=== PATIENT | female | born 1955 | race Caucasian/White ===

== ENCOUNTER 2017-07-01 12:09 | Inpatient (IN) | payer OTHER, SELFPAY ==
[2017-07-01] VITALS (15 sets, daily range): BP systolic 135–168; BP diastolic 69–92; PULSE 61–86; RESP 14–18; TEMP 36.2–37.4; O2SAT 95–100; BMI 32.5; BMI 32.6; BMI 32.7
--- NOTE | 2017-07-01 12:50 | ED.DCSUM_ITS ---
- ER Visit Summary Date of Service: 07/01/17 Chief Complaint: [] Sided nosebleed history of anemia thrombocytopenia and possibly cancer History of Present Illness: The patient is a 61 F [] ports she began having nasal congestion primary involving the right nostril, she indicates she has some type of cancer she describes as myelodysplastic syndrome she was seen by her oncologist yesterday put on Levaquin and amoxicillin and addition to nasal saline spray and she noticed she began having left-sided nosebleed today and she presents for evaluation. She is not prone to nosebleeds. She has no bleeding elsewhere she has no bruisability she has no vomiting of blood or blood per rectum Physical Examination: [] On exam she has a bleeding from the left side of the nostril the right nostril is clear the oral cavity is unremarkable the neck is supple lungs are clear heart tones unremarkable the abdomen soft nontender his skin is unremarkable the bruisability or bleeding the did show me her recent labs which include yesterday that showed hemoglobin about 8.5 and platelet count 57,000 at this time we did clear her nose there is no obvious signs of the bleeding site there is no signs this is a posterior bleed. A nasal pack was placed and the bleeding stopped we continue to observe her And had no bleeding after the pack was watched for 30 minutes. Later she began to have slight oozing of blood into her throat thin line. She was spitting up blood-tinged mucus. Her vital signs are stable I spoke with Dr. Penn her oncologist indicates she basically has likely nonfunctioning platelets given the bleeding he would like her admitted to receive transfusion of irradiated platelets, I spoke with ENT operations administrative assistant for Dr. Hurtado will be by to see her shortly for further ENT evaluation and her platelet transfusion has been started discussed all the above with the family and they agree with admission, Dramatic she reports the patient has myelodysplastic syndrome and possibly very early leukemia, she is being evaluated for bone marrow transplant and must receive irradiated platelet therapy I did communicate all the above to the blood bank lab Screening labs have been ordered and are pending and will be on the chart Dr. Penn did contact the blood bank and he gave them the direct order for the platelets Test Results: [] Emergency Department Course and Treatment: [] Treatment Plan: [] Disposition: [] Stable Impression: [] Left sided nosebleed, thrombocytopenia pancytopenia myelodysplastic disorder, platelet dysfunction This note was generated with [employer] dictation software. It may contain incorrect words, spelling, and punctuation that were not noted in review of the chart prior to signing ED Disposition - Plan for ED Patient: Chief Complaint: Nosebleed
--- NOTE | 2017-07-01 14:07 | PCM.HP.STD ---
Problem List (1) Epistaxis Status: Acute History of Present Illness Date of Admission: 07/01/17 Chief Complaint: epistaxis of left nostril The patient is a 61 year old F with a PMH of myelodysplastic syndrome who presents with a complaint of epistaxis from her left nostril since this morning. SHe noticed rené blood from her left nostril this morning; and she had a similar experience a couple of days ago from her right nostril. SHe was given nasal saline drops by her oncologist but it didnt help much. The right nostril epistaxis resolved spontaneously a couple of days ago. She had no associated dizziness, palpitations, or loss of consciousness.On admission to the ED, she had nasal packing put in the left nostril. However, bleeding still persisted, so oncologist decided to admit her for transfusion of irradiated platelets and to be reviewed by ENT. Past Medical History Allergies Sulfa (Sulfonamide Antibiotics) Allergy (Verified 07/01/17 12:10) Hives Home Medications: Ambulatory Orders Medication Instructions Recorded ALPRAZolam [Xanax] 0.5 mg PO TID 04/24/17 Paroxetine HCl [Paroxetine HCl] 20 mg PO BID 04/24/17 Amoxicillin/Potassium Clav [Amox 1 each PO BID 07/01/17 Tr-K Clv 875-125 mg Tab] Levofloxacin [Levaquin] 1 tab PO DAILY 07/01/17 Surgical History: no surgical history Psychiatric History: No pertinent psych hx Lives: Spouse/ Significant Other Smoking Status: Never smoker Alcohol: None Review of Systems Constitutional: Denies: Chills, Fever, Weight Change Eyes: Denies: Blurred vision HEENT: Reports: Nasal bleeding. Denies: Head Aches, Nasal Congestion, Sinus Congestion, Sinus Drainage, Sore Throat Cardiovascular: Denies: Chest Pain, Light Headedness, Orthopnea, Palpitations, Syncope Respiratory: Denies: Cough, Hemoptysis, Shortness of breath at rest, Shortness of breath upon exertion, Sputum production Gastrointestinal: Reports: Constipation, Diarrhea. Denies: Abdominal Pain, Hematemesis, Hematochezia, Nausea, Vomiting Genitourinary: Denies: Dysuria Gynecological: Denies: Vaginal bleeding Musculoskeletal: Denies: Joint Pain, Joint Tenderness Skin: Denies: Rash, Wounds Neurological: Denies: Numbness, Tingling, Focal weakness Psychiatric: Denies: Anxiety, Depression, Homicidal Ideations, Suicidal Ideations Endocrine: Reports: Change in Body Habitus Hematologic/ Lymphatic: Denies: Anemia, Easy Bruising, Easy Bleeding, Petechiae, Purpura VTE Information - Inpt Only VTE Present on Admission: No VTE Mechan Device Prophylaxis: SCD's VTE Pharm Prophylaxis ordered?: No Patient Problems: Active and Suspected Problems Epistaxis (Acute) - Physical Exam General: Alert, Oriented x3, Cooperative, No apparent distress HEENT: Atraumatic, PERRLA, EOMI, Normocephalic, - - nasal packing in left nostril; no bleeding visualised Oral: Moist Mucosa Neck: Supple, No JVD, Negative Carotid Bruits, No Nodes Lungs: Clear to auscultation, Normal air movement, No rhonchi, No wheeze, No rales Cardiovascular: Regular rate, Regular Rhythm, Normal S1, Normal S2, No murmurs Abdomen: Bowel Sounds Present, Soft, Non Tender, Non-Distended, No Hepato-splenomegaly Extremities: No clubbing, No cyanosis, No edema, Capillary Refill Less than 3 Seconds Skin: No rashes, No breakdown, - - no petechiae, or ecchymotic patches Musculoskeletal: No Tenderness to Palpation of Joints or Extremities Lymphatic: No Cervical, Supraclavicular, or Inguinal Adenopathy Neurological: Cranial nerves II-XII grossly intact, Motor Exam 5/5 strength throughout Psych/Mental Status: Normal Affect, Appropriate, Alert and oriented to time, place, person, mood and affect Vital Signs Temp Pulse Resp BP Pulse Ox 97.2 F L 83 17 144/69 H 100 07/01/17 12:10 07/01/17 12:10 07/01/17 12:10 07/01/17 12:10 07/01/17 12:10 Assessment/Plan Active and Suspected Problems Epistaxis (Acute) 1. Epistaxis likely due to thrombocytopenia bleeding from left nostril started this morning has a history of thrombocytopenia, with platelelts being in the range of 40s-60s this week from serial labs ( had lab results with him from this week) vitals: stable CBC today: wbc-1.1, Hb-8.6, platelets-45 INR-1.1, has nasal packing in place per oncologist, to transfuse 2 units of irradiated cells ENT consulted from ED- Dr Perez; he says he will see patient today after transfusion of platelets 2. Myelodysplastic syndrome follows up with oncologist. On Vicayza (Azacitadine) will consult oncology 3. DVT prophylaxis: PCDs This note was generated with [employer] dictation software. It may contain incorrect words, spelling, and punctuation that were not noted in checking the note before signing. Code Visit OBSV E&M: 61625 Initial observation care L2
[2017-07-01] MEDS: 0.9% Normal Saline 1,000 ML 100 ML IV (14:13)
[2017-07-01 14:18] LABS: International Normalized Ratio 1.1; Prothrombin Time (Protime)PT. 13.6 SECONDS (11.7-14.9)
[2017-07-01 14:19] LABS: Absolute Lymphocyte Count 0.87 X10^3/ul (0.83-4.51); Absolute Neutrophil Count 0.1 X10^3/uL (2.0-7.7); Eosinophil# 0.01 X10^3/uL; Eosinophils% 0.9 % (0-5); Hematocrit 31.4 % (37-47); Hemoglobin 8.6 g/dl (12.0-15.0); Lymphocyte # 0.87 X10^3/ul (4.0); Lymphocyte % 80.6 % (19-41); Mean Corp Hgb Conc 27.4 g/gl (32-36); Mean Corpuscular Hgb 25.7 pg (27.0-32.0); Mean Platelet Vol. 9.1 fl (6.2-12.0); Monocyte# 0.11 X10^3/uL; Monocyte% 10.2 % (0-10); Neutrophil # 0.09 X10^3/uL (2.7-7.7); Neutrophil % 8.3 % (47-70); Partial Thromboplast Time 28.3 Seconds (24.1-36.2); Platelet Count 45 K/mm3 (150-450); RBC Distribution Width CV 21.1 % (11.6-14.6); RBC Distribution Width SD 71.9 fl (35.1-43.9); Red Blood Count 3.34 M/mm3 (4.2-5.4)
--- NOTE | 2017-07-01 14:19 | HP.PCM_ITS ---
Problem List (1) Epistaxis Status: Acute History of Present Illness Date of Admission: 07/01/17 Chief Complaint: epistaxis of left nostril The patient is a 61 year old F with a PMH of myelodysplastic syndrome who presents with a complaint of epistaxis from her left nostril since this morning. SHe noticed rené blood from her left nostril this morning; and she had a similar experience a couple of days ago from her right nostril. SHe was given nasal saline drops by her oncologist but it didnt help much. The right nostril epistaxis resolved spontaneously a couple of days ago. She had no associated dizziness, palpitations, or loss of consciousness.On admission to the ED, she had nasal packing put in the left nostril. However, bleeding still persisted, so oncologist decided to admit her for transfusion of irradiated platelets and to be reviewed by ENT. Past Medical History Allergies Sulfa (Sulfonamide Antibiotics) Allergy (Verified 07/01/17 12:10) Hives Home Medications: Ambulatory Orders Medication Instructions Recorded ALPRAZolam [Xanax] 0.5 mg PO TID 04/24/17 Paroxetine HCl [Paroxetine HCl] 20 mg PO BID 04/24/17 Amoxicillin/Potassium Clav [Amox 1 each PO BID 07/01/17 Tr-K Clv 875-125 mg Tab] Levofloxacin [Levaquin] 1 tab PO DAILY 07/01/17 Surgical History: no surgical history Psychiatric History: No pertinent psych hx Lives: Spouse/ Significant Other Smoking Status: Never smoker Alcohol: None Review of Systems Constitutional: Denies: Chills, Fever, Weight Change Eyes: Denies: Blurred vision HEENT: Reports: Nasal bleeding. Denies: Head Aches, Nasal Congestion, Sinus Congestion, Sinus Drainage, Sore Throat Cardiovascular: Denies: Chest Pain, Light Headedness, Orthopnea, Palpitations, Syncope Respiratory: Denies: Cough, Hemoptysis, Shortness of breath at rest, Shortness of breath upon exertion, Sputum production Gastrointestinal: Reports: Constipation, Diarrhea. Denies: Abdominal Pain, Hematemesis, Hematochezia, Nausea, Vomiting Genitourinary: Denies: Dysuria Gynecological: Denies: Vaginal bleeding Musculoskeletal: Denies: Joint Pain, Joint Tenderness Skin: Denies: Rash, Wounds Neurological: Denies: Numbness, Tingling, Focal weakness Psychiatric: Denies: Anxiety, Depression, Homicidal Ideations, Suicidal Ideations Endocrine: Reports: Change in Body Habitus Hematologic/ Lymphatic: Denies: Anemia, Easy Bruising, Easy Bleeding, Petechiae , Purpura VTE Information - Inpt Only VTE Present on Admission: No VTE Mechan Device Prophylaxis: SCD's VTE Pharm Prophylaxis ordered?: No Patient Problems: Active and Suspected Problems Epistaxis (Acute) - Physical Exam General: Alert, Oriented x3, Cooperative, No apparent distress HEENT: Atraumatic, PERRLA, EOMI, Normocephalic, - - nasal packing in left nostril; no bleeding visualised Oral: Moist Mucosa Neck: Supple, No JVD, Negative Carotid Bruits, No Nodes Lungs: Clear to auscultation, Normal air movement, No rhonchi, No wheeze, No rales Cardiovascular: Regular rate, Regular Rhythm, Normal S1, Normal S2, No murmurs Abdomen: Bowel Sounds Present, Soft, Non Tender, Non-Distended, No Hepato- splenomegaly Extremities: No clubbing, No cyanosis, No edema, Capillary Refill Less than 3 Seconds Skin: No rashes, No breakdown, - - no petechiae, or ecchymotic patches Musculoskeletal: No Tenderness to Palpation of Joints or Extremities Lymphatic: No Cervical, Supraclavicular, or Inguinal Adenopathy Neurological: Cranial nerves II-XII grossly intact, Motor Exam 5/5 strength throughout Psych/Mental Status: Normal Affect, Appropriate, Alert and oriented to time, place, person, mood and affect Vital Signs Temp Pulse Resp BP Pulse Ox 97.2 F L 83 17 144/69 H 100 07/01/17 12:10 07/01/17 12:10 07/01/17 12:10 07/01/17 12:10 07/01/17 12:10 Assessment/Plan Active and Suspected Problems Epistaxis (Acute) 1. Epistaxis likely due to thrombocytopenia * bleeding from left nostril started this morning * has a history of thrombocytopenia, with platelelts being in the range of 40s- 60s this week from serial labs ( had lab results with him from this week) * vitals: stable * CBC today: wbc-1.1, Hb-8.6, platelets-45 * INR-1.1, * has nasal packing in place * per oncologist, to transfuse 2 units of irradiated cells * ENT consulted from ED- Dr Perez; he says he will see patient today after transfusion of platelets * 2. Myelodysplastic syndrome * follows up with oncologist. On Vicayza (Azacitadine) * will consult oncology * 3. DVT prophylaxis: PCDs This note was generated with [employer] dictation software. It may contain incorrect words, spelling, and punctuation that were not noted in checking the note before signing. * Code Visit OBSV E&M: 15817 Initial observation care L2
[2017-07-01 14:21] LABS: Differential Indicated SCAN CRITERIA MET; POSITIVE COUNT YES; POSITIVE DIFFERENTIAL YES; POSITIVE MORPHOLOGY YES; White Blood Count 1.1 K/mm3 (4.4-11.0)
[2017-07-01 14:24] LABS: Anion Gap 8 (5-15); BUN 15 mg/dL (7-18); Chloride 106 mmol/L (98-107); Creatinine, Serum 0.71 mg/dL (0.55-1.02); EST Glomerular Filtration Rate 88 mL/min (>60); Est Glom Filt Rate - Afr Amer 106 mL/min (>60); Estimated Creatinine Clearance 67.96 ml/min; Glucose 94 mg/dL (74-106); Potassium 3.7 mmol/L (3.5-5.1); Sodium Level 139 mmol/L (136-145)
[2017-07-01 14:44] LABS: Anisocytosis 3+; Differential Comment SCANNED; Hypochromasia 2+; Macrocytosis 1+; Microcytosis 2+; Ovalocyte 1+; Platelet Estimate MKD DEC (ADEQ); Poikilocytosis 1+
[2017-07-01] MEDS: ALPRAZolam 0.5 MG Tablet PO ×2 (15:24→21:16)
--- NOTE | 2017-07-01 16:33 | PCM.CONS.GEN ---
Problem List (1) Epistaxis Status: Acute Reason for Consult Date of Consultation: 07/01/17 History of Present Illness: The patient is a 61 year old F with myelodysplastic syndrome with epistaxis. began with right-sided bleeding that was self-limiting. this morning, however, began bleeding out of the left nasal cavity that was unremitting. presented to [facility] ED where a rhino rocket was placed. she has had very slight intermittent bleeding since. hemoglobin 8.6, platelets 45k. has never required nasal packing before today. Past Medical History Allergies Sulfa (Sulfonamide Antibiotics) Allergy (Verified 07/01/17 12:10) Hives Home Medications: Ambulatory Orders Medication Instructions Recorded ALPRAZolam [Xanax] 0.5 mg PO TID 04/24/17 Paroxetine HCl [Paroxetine HCl] 20 mg PO BID 04/24/17 Amoxicillin/Potassium Clav [Amox 1 each PO BID 07/01/17 Tr-K Clv 875-125 mg Tab] Levofloxacin [Levaquin] 1 tab PO DAILY 07/01/17 Surgical History: no surgical history Psychiatric History: No pertinent psych hx Lives: Spouse/ Significant Other Smoking Status: Never smoker Alcohol: None Review of Systems Constitutional: Denies: Chills, Fever, Weight Change HEENT: Reports: - - epistaxis. Denies: Head Aches, Sinus Congestion, Sinus Drainage Respiratory: Denies: Cough, Sputum production Patient Problems: Active and Suspected Problems Epistaxis (Acute) Subjective: x - Physical Exam General: Alert, Oriented x3, Cooperative HEENT: - - rhino rocket in left NC. no bleeding Oral: - - no oropharyngeal bleeding or clots Neck: No Nodes Lungs: - - no stridor Vital Signs Temp Pulse Resp BP Pulse Ox 97.6 F L 61 14 135/80 H 99 07/01/17 14:53 07/01/17 15:21 07/01/17 14:53 07/01/17 14:53 07/01/17 14:53 Oxygen Delivery Method Room Air Weight: 81 kg Body Mass Index (BMI) 32.6 Laboratory Tests Past 24 Hrs 07/01/17 07/01/17 07/01/17 14:00 14:00 14:00 WBC 1.1 L* RBC 3.34 L Hgb 8.6 L Hct 31.4 L MCV 94.0 MCH 25.7 L MCHC 27.4 L RDW 21.1 H RDW Differential 71.9 H Plt Count 45 L* MPV 9.1 Immature Gran % (Auto) 0.000 Neut % (Auto) 8.3 L Lymph % (Auto) 80.6 H [place] % (Auto) 10.2 H Eos % (Auto) 0.9 Baso % (Auto) 0.0 Absolute Neuts (auto) 0.1 L Absolute Lymphs (auto) 0.87 Total Counted Not Reportable Differential Comment SCANNED Diff Path Review May foll Platelet Estimate MKD DEC Hypochromasia 2+ Poikilocytosis 1+ Anisocytosis 3+ Microcytosis 2+ Macrocytosis 1+ Ovalocytes 1+ PT 13.6 INR 1.1 APTT 28.3 Sodium 139 Potassium 3.7 Chloride 106 Carbon Dioxide 25.0 Anion Gap 8 BUN 15 Creatinine 0.71 Estim Creat Clear Calc 67.96 Est GFR (MDRD) Af Amer 106 Est GFR (MDRD) Non-Af 88 BUN/Creatinine Ratio 21.0 H Glucose 94 Calcium 9.0 Blood Type Antibody Screen 07/01/17 14:00 WBC RBC Hgb Hct MCV MCH MCHC RDW RDW Differential Plt Count MPV Immature Gran % (Auto) Neut % (Auto) Lymph % (Auto) [place] % (Auto) Eos % (Auto) Baso % (Auto) Absolute Neuts (auto) Absolute Lymphs (auto) Total Counted Differential Comment Diff Path Review Platelet Estimate Hypochromasia Poikilocytosis Anisocytosis Microcytosis Macrocytosis Ovalocytes PT INR APTT Sodium Potassium Chloride Carbon Dioxide Anion Gap BUN Creatinine Estim Creat Clear Calc Est GFR (MDRD) Af Amer Est GFR (MDRD) Non-Af BUN/Creatinine Ratio Glucose Calcium Blood Type A POSITIVE Antibody Screen NEGATIVE Assessment/Plan Active and Suspected Problems Epistaxis (Acute) 61 year old female with MDS and epistaxis -will likely not require any further treatment for epistaxis this visit - epistat to remain until next week - likely monday. -saline to right (unpacked) nasal cavity 4 times daily -will likely see her in my clinic next monday when convenient
[2017-07-01] MEDS: Sodium Chloride 0.65% 1 SPRAY SPRAY.BTL NASAL (21:17)
[2017-07-01] MEDS: Acetaminophen 325 MG Tablet 650 MG PO (22:36)
[2017-07-02] MEDS: 0.9% Normal Saline 1,000 ML 100 ML IV ×2 (01:19→11:25)
[2017-07-02 03:00] VITALS: PULSE 72
[2017-07-02 03:24] VITALS: BP 142/76; PULSE 76; RESP 18; TEMP 36.9; O2SAT 97
[2017-07-02] MEDS: ALPRAZolam 0.5 MG Tablet PO (05:07)
[2017-07-02 06:42] LABS: Absolute Lymphocyte Count 1.04 X10^3/ul (0.83-4.51); Absolute Neutrophil Count 0.2 X10^3/uL (2.0-7.7); Eosinophil# 0.01 X10^3/uL; Eosinophils% 0.8 % (0-5); Hematocrit 32.9 % (37-47); Hemoglobin 9.5 g/dl (12.0-15.0); Lymphocyte # 1.04 X10^3/ul (4.0); Lymphocyte % 78.2 % (19-41); Mean Corp Hgb Conc 28.9 g/gl (32-36); Mean Corpuscular Hgb 27.1 pg (27.0-32.0); Mean Corpuscular Volume 93.7 fL (81-99); Mean Platelet Vol. 9.6 fl (6.2-12.0); Monocyte# 0.12 X10^3/uL; Neutrophil # 0.15 X10^3/uL (2.7-7.7); Neutrophil % 11.2 % (47-70); Platelet Count 118 K/mm3 (150-450); RBC Distribution Width CV 20.3 % (11.6-14.6); RBC Distribution Width SD 67.4 fl (35.1-43.9); Red Blood Count 3.51 M/mm3 (4.2-5.4)
[2017-07-02 06:49] LABS: Differential Indicated SCAN CRITERIA MET; POSITIVE COUNT YES; POSITIVE DIFFERENTIAL YES; POSITIVE MORPHOLOGY YES; White Blood Count 1.3 K/mm3 (4.4-11.0)
[2017-07-02 06:50] LABS: Anion Gap 9 (5-15); BUN 12 mg/dL (7-18); BUN/Creat Ratio 15.8 RATIO (10-20); Calcium,Total 8.8 mg/dL (8.5-10.1); Chloride 105 mmol/L (98-107); Creatinine, Serum 0.76 mg/dL (0.55-1.02); EST Glomerular Filtration Rate 82 mL/min (>60); Est Glom Filt Rate - Afr Amer 99 mL/min (>60); Glucose 105 mg/dL (74-106); Potassium 3.8 mmol/L (3.5-5.1); Sodium Level 138 mmol/L (136-145)
[2017-07-02 06:55] VITALS: PULSE 70
[2017-07-02 06:57] LABS: Anisocytosis 3+; Differential Comment SCANNED; Hypochromasia 3+; Target Cells 1+
--- NOTE | 2017-07-02 08:01 | PCM.CONS.B ---
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 Bone marrow biopsy demonstrated high-grade myelodysplastic syndrome with complex cytogenetic findings. She is currently undergoing evaluation for allogeneic transplant and she is receiving Vidaza. She was seen in the office on Monday for suture removal from recent biopsy of a indurated, erythematous plaque lesion of the lateral proximal left thigh. Pathology showed nonspecific lymphocytic infiltrate not suggestive of vasculitis, infection or neutrophilic infiltrate. The lesion has been improving. She had a complaint of having had a right-sided nosebleed that stopped with pressure. He had some scabbing. I had advised saline irrigation with gentle blowing. We will count was 54,000. This was increased from approximate 47,000 earlier in the week. She has been having oral mucosal blood blisters and nonspecific small bruising with minor injury. Coags are normal. She hasn't been febrile. She was started on anti-biotic as well as prophylaxis and management of the paronychial infection of the 5th right digit. She presented to the ER yesterday with significant nosebleed from the left side. She describes the bleeding as squirting. Nasal packing was applied. Platelet count was 45,000. Patient received a 2 unit apheresed irradiated platelet transfusion. No bleeding since. She has been mildly hypertensive. No other complaints this morning. Allergies Sulfa (Sulfonamide Antibiotics) Allergy (Verified 07/01/17 12:10) Hives Current Medications Acetaminophen (Tylenol) 650 mg PO Q6H PRN PRN PRN Reason: Non-cardiac pain (mod-severe) Last Admin: 07/01/17 22:36 Dose: 650 mg Hydrocodone Bitart/Acetaminophen ([place] 5mg-325mg) 1 - 2 tablet PO Q6H PRN PRN PRN Reason: Moderate-severe pain Alprazolam (Xanax) 0.5 mg PO TID [facility] Last Admin: 07/02/17 05:07 Dose: 0.5 mg Hydralazine HCl (Apresoline) 10 mg IV Q4H PRN PRN PRN Reason: SBP > 160 Sodium Chloride () 1,000 mls @ 100 mls/hr IV .Q10H [facility] Last Admin: 07/02/17 01:19 Dose: 100 mls/hr Magnesium Hydroxide (Milk Of Magnesia) 30 ml PO DAILY PRN PRN PRN Reason: Constipation Morphine Sulfate (Morphine) 1 - 2 mg IV Q4H PRN PRN PRN Reason: PAIN Ondansetron HCl (Zofran) 4 mg IV Q8H PRN PRN PRN Reason: NAUSEA/VOMITING Paroxetine HCl (Paxil) 20 mg PO BID [facility] Last Admin: 07/02/17 09:02 Dose: 20 mg Sodium Chloride () 5 - 30 ml IV UD PRN PRN Reason: SALINE FLUSH Sodium Chloride ([place] Nasal [place]) 1 spray NASAL 4X/DAY [facility] Last Admin: 07/02/17 09:02 Dose: 1 spray Temazepam (Restoril) 15 mg PO QHS PRN PRN PRN Reason: insomnia Problem List Epistaxis (Acute) MDS (myelodysplastic syndrome), high grade (Chronic) 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 No alcohol use. Lives with in [place]. ROS: Constitutional: Denies episodes of night sweats. Appetite has been normal. Neuro: Denies US, recent changes in vision, hearing and balance. Denies symptoms of neuropathy. HEENT: Denies sinus pain or pressure. Denies nasal discharge. Denies recent sore throat. Resp: Denies cough, wheezing and hemoptysis. No shortness of breath at rest or with exertion. CVS: Denies exertional chest pain, PND, orthopnea. Denies lower extremity edema. GI: Denies reflux, n/v, and abdominal pain. Denies change in bowel habits. No melena or hematochezia. : Denies dysuria, frequency and gross hematuria. Endo: Denies hot flashes. Heat and cold intolerance. Musculoskeletal: Denies bone, back, joint and muscular pain. Heme: See above. Psych: Mood has been normal. PHYSICAL EXAM: Vitals: Vital Signs Temp 98.5 F 07/02/17 09:00 Pulse 80 07/02/17 09:00 Resp 18 07/02/17 09:00 BP 152/85 H 07/02/17 09:00 Pulse Ox 96 07/02/17 09:00 Intake & Output 06/30/17 07/01/17 07/02/17 23:59 23:59 23:59 Intake Total 1244 / 1244 834 / 834 Balance 1244 / 1244 834 / 834 Weight: 81 kg Intake: Oral 240 / 240 240 / 240 IV fluid/meds 604 / 604 594 / 594 Blood Product 400 / 400 Irrad/Leuk-Reduced Pphr Plt 200 / 200 Unit [id number] Irrad/Leuk-Reduced Pphr Plt 200 / 200 Unit [id number] Other: Number of Voids 2 2 GENERAL: No acute distress. EYES: Sclerae are anicteric bilaterally. ENT: Left nasal passage packed. NECK: Supple. LYMPHATIC: No palpable peripheral adenopathy. RESPIRATORY: Inspiratory breath sounds are of normal intensity in all barros. CARDIOVASCULAR: Rhythm is regular. Normal intensity S1/S2. ABDOMEN: The abdomen is nondistended. No tenderness. No hepatomegaly or splenomegaly. Extremities: No edema. SKIN: The previous erythematous plaque lesion of the left anterior lateral proximal thigh is much smaller. Central scabbing. No sign of purulent infection. The right 5th digit paronychial inflammation has decreased. NEUROLOGIC: AAO x3; No focal motor weakness. MUSCULOSKELETAL: No muscle wasting. ASSESSMENT/PLAN: 1) Epistaxis/thrombocytopenia. Assessment: -Coagulation times normal. -Qualitative platelet dysfunction. -Bleeding has now ceased. -Patient hypertensive but not to a degree that one would expect arterial bleeding. Plan: -Transfuse platelets to maintain platelet count greater than 80-100,000. We'll need irradiated blood products. -ENT evaluation. -Begin lisinopril 10 mg daily. 2) High grade MDS. Assessment: -High risk for progression to acute leukemia. -Patient will continue process for allogeneic bone marrow transplantation. -In the meantime she will continue on Vidaza with transfusional support as indicated. Plan: -She'll be monitored in the office twice a week for counts and RBCs/transfusion as indicated.
[2017-07-02 09:00] VITALS: BP 152/85; PULSE 80; RESP 18; TEMP 36.9; O2SAT 96
[2017-07-02] MEDS: Sodium Chloride 0.65% 1 SPRAY SPRAY.BTL NASAL (09:02)
[2017-07-02 10:01] VITALS: PULSE 140
[2017-07-02] MEDS: Lisinopril 10 MG Tablet PO (10:10)
[2017-07-02 11:03] VITALS: PULSE 82
--- NOTE | 2017-07-02 11:35 | PCM.PN.HOSP ---
Subjective: Patient seen and examined today. She complained of spitting up some blood from the back of her throat yesterday and this morning. She has not had any further nose bleeding. She denied any lightheadedness, any dizziness,, any headache, any abdominal pain, any diarrhea vomiting. Review of systems otherwise negative. Vitals/I&O's: Vital Signs Temp Pulse Resp BP Pulse Ox 98.5 F 82 18 152/85 H 96 07/02/17 09:00 07/02/17 11:03 07/02/17 09:00 07/02/17 09:00 07/02/17 09:00 Oxygen Delivery Method Room Air Weight: 178 lb 9.191 oz Body Mass Index (BMI) 32.6 Intake and Output for Last 24 Hours 06/30/17 07/01/17 07/02/17 23:59 23:59 23:59 Intake Total 1244 / 1244 834 / 834 Balance 1244 / 1244 834 / 834 General: Alert, Oriented x3, Cooperative HEENT: Atraumatic, PERRLA, EOMI, Normocephalic, - - Has nasal packing in left nostril. Oral: Moist Mucosa Neck: Supple, No JVD, Negative Carotid Bruits Lungs: Clear to auscultation, Normal air movement, No rhonchi, No wheeze, No rales Cardiovascular: Regular rate, Regular Rhythm, Normal S1, Normal S2, No murmurs Abdomen: Bowel Sounds Present, Soft, Non Tender Extremities: No clubbing, No edema, Capillary Refill Less than 3 Seconds Skin: No rashes Musculoskeletal: No Tenderness to Palpation of Joints or Extremities Lymphatic: No Cervical, Supraclavicular, or Inguinal Adenopathy Neurological: Cranial nerves II-XII grossly intact Psych/Mental Status: Normal Affect, Appropriate, Alert and oriented to time, place, person, mood and affect Laboratory Results 07/01/17 14:00: WBC 1.1 L*, RBC 3.34 L, Hgb 8.6 L, Hct 31.4 L, MCV 94.0, MCH 25.7 L, MCHC 27.4 L, RDW 21.1 H, RDW Differential 71.9 H, Plt Count 45 L*, MPV 9.1, Immature Gran % (Auto) 0.000, Neut % (Auto) 8.3 L, Lymph % (Auto) 80.6 H, [place] % (Auto) 10.2 H, Eos % (Auto) 0.9, Baso % (Auto) 0.0, Absolute Neuts (auto) 0.1 L, Absolute Lymphs (auto) 0.87, Total Counted Not Reportable, Differential Comment SCANNED, Diff Path Review September foll, Platelet Estimate MKD DEC, Hypochromasia 2+, Poikilocytosis 1+, Anisocytosis 3+, Microcytosis 2+, Macrocytosis 1+, Ovalocytes 1+ 07/01/17 14:00: PT 13.6, INR 1.1, APTT 28.3 07/01/17 14:00: Sodium 139, Potassium 3.7, Chloride 106, Carbon Dioxide 25.0, Anion Gap 8, BUN 15, Creatinine 0.71, Estim Creat Clear Calc 67.96, Est GFR (MDRD) Af Amer 106, Est GFR (MDRD) Non-Af 88, BUN/Creatinine Ratio 21.0 H, Glucose 94, Calcium 9.0 07/01/17 14:00: Blood Type A POSITIVE, Antibody Screen NEGATIVE 07/02/17 05:20: Sodium 138, Potassium 3.8, Chloride 105, Carbon Dioxide 24.0, Anion Gap 9, BUN 12, Creatinine 0.76, Estim Creat Clear Calc 60.70, Est GFR (MDRD) Af Amer 99, Est GFR (MDRD) Non-Af 82, BUN/Creatinine Ratio 15.8, Glucose 105, Calcium 8.8 07/02/17 05:20: WBC 1.3 L*, RBC 3.51 L, Hgb 9.5 L, Hct 32.9 L, MCV 93.7, MCH 27.1, MCHC 28.9 L, RDW 20.3 H, RDW Differential 67.4 H, Plt Count 118 L, MPV 9.6, Immature Gran % (Auto) 0.800, Neut % (Auto) 11.2 L, Lymph % (Auto) 78.2 H, [place] % (Auto) 9.0, Eos % (Auto) 0.8, Baso % (Auto) 0.0, Absolute Neuts (auto) 0.2 L, Absolute Lymphs (auto) 1.04, Total Counted Not Reportable, Differential Comment SCANNED, Diff Path Review May foll, Hypochromasia 3+, Anisocytosis 3+, Target Cells 1+ Current Medications Acetaminophen (Tylenol) 650 mg PO Q6H PRN PRN PRN Reason: Non-cardiac pain (mod-severe) Last Admin: 07/01/17 22:36 Dose: 650 mg Hydrocodone Bitart/Acetaminophen ([place] 5mg-325mg) 1 - 2 tablet PO Q6H PRN PRN PRN Reason: Moderate-severe pain Alprazolam (Xanax) 0.5 mg PO TID [facility] Last Admin: 07/02/17 05:07 Dose: 0.5 mg Hydralazine HCl (Apresoline) 10 mg IV Q4H PRN PRN PRN Reason: SBP > 160 Sodium Chloride () 1,000 mls @ 100 mls/hr IV .Q10H [facility] Last Admin: 07/02/17 11:25 Dose: 100 mls/hr Lisinopril (Zestril) 10 mg PO DAILY [facility] Last Admin: 07/02/17 10:10 Dose: 10 mg Magnesium Hydroxide (Milk Of Magnesia) 30 ml PO DAILY PRN PRN PRN Reason: Constipation Morphine Sulfate (Morphine) 1 - 2 mg IV Q4H PRN PRN PRN Reason: PAIN Ondansetron HCl (Zofran) 4 mg IV Q8H PRN PRN PRN Reason: NAUSEA/VOMITING Paroxetine HCl (Paxil) 20 mg PO BID [facility] Last Admin: 07/02/17 09:02 Dose: 20 mg Sodium Chloride () 5 - 30 ml IV UD PRN PRN Reason: SALINE FLUSH Sodium Chloride ([place] Nasal [place]) 1 spray NASAL 4X/DAY [facility] Last Admin: 07/02/17 09:02 Dose: 1 spray Temazepam (Restoril) 15 mg PO QHS PRN PRN PRN Reason: insomnia Assessment/Plan 1. Epistaxis likely due to thrombocytopenia Nasal spitting up some blood overnight from the back of her throat. Epistaxis didnt recur Has no complaints otherwise. Vitals have remained stable. Received 2 units of irradiated platelets overnight. CBC today shows WBC of 1.3 and platelets are up to 118 today from 45 yesterday on admission.. Reviewed by ENT surgeon. ENT surgeon, does not require any further visits for epistasis. Nasal packing to remain until Monday of this week. Recommend to apply saline nasal drops to right unpack nasal cavity 4 times daily. To follow-up with ENT doctor in this clinic this Monday. Hematology oncology on board. 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 Was started on lisinopril due to possibility of elevated blood pressure causing epistasis. Will monitor. 2. Myelodysplastic syndrome follows up with oncologist. On Vicayza (Azacitadine) DR Penn reviewed patient. In the process for allogeneic bone marrow transplant stable 3. DVT prophylaxis: PCDs Disposition: will dc home today. To apply nasal saline spray in right nostril 4x daily. Nasal packing to remain in place till next Monday. To follow up with ENT doctor on Monday, and with Dr Penn twice weekly for counts and rbcs/transfusion support as needed. This note was generated with [employer] dictation software. It may contain incorrect words, spelling, and punctuation that were not noted in checking the note before signing. Code Visit Inpatient E&M: 24083 Subs Hosp L2
--- NOTE | 2017-07-02 11:41 | PN_ITS ---
Subjective: Patient seen and examined today. She complained of spitting up some blood from the back of her throat yesterday and this morning. She has not had any further nose bleeding. She denied any lightheadedness, any dizziness,, any headache, any abdominal pain, any diarrhea vomiting. Review of systems otherwise negative. Vitals/I&O's: Vital Signs Temp Pulse Resp BP Pulse Ox 98.5 F 82 18 152/85 H 96 07/02/17 09:00 07/02/17 11:03 07/02/17 09:00 07/02/17 09:00 07/02/17 09:00 Oxygen Delivery Method Room Air Weight: 178 lb 9.191 oz Body Mass Index (BMI) 32.6 Intake and Output for Last 24 Hours 06/30/17 07/01/17 07/02/17 23:59 23:59 23:59 Intake Total 1244 / 1244 834 / 834 Balance 1244 / 1244 834 / 834 General: Alert, Oriented x3, Cooperative HEENT: Atraumatic, PERRLA, EOMI, Normocephalic, - - Has nasal packing in left nostril. Oral: Moist Mucosa Neck: Supple, No JVD, Negative Carotid Bruits Lungs: Clear to auscultation, Normal air movement, No rhonchi, No wheeze, No rales Cardiovascular: Regular rate, Regular Rhythm, Normal S1, Normal S2, No murmurs Abdomen: Bowel Sounds Present, Soft, Non Tender Extremities: No clubbing, No edema, Capillary Refill Less than 3 Seconds Skin: No rashes Musculoskeletal: No Tenderness to Palpation of Joints or Extremities Lymphatic: No Cervical, Supraclavicular, or Inguinal Adenopathy Neurological: Cranial nerves II-XII grossly intact Psych/Mental Status: Normal Affect, Appropriate, Alert and oriented to time, place, person, mood and affect Laboratory Results 07/01/17 14:00: WBC 1.1 L*, RBC 3.34 L, Hgb 8.6 L, Hct 31.4 L, MCV 94.0, MCH 25.7 L, MCHC 27.4 L, RDW 21.1 H, RDW Differential 71.9 H, Plt Count 45 L*, MPV 9.1, Immature Gran % (Auto) 0.000, Neut % (Auto) 8.3 L, Lymph % (Auto) 80.6 H, [place] % (Auto) 10.2 H, Eos % (Auto) 0.9, Baso % (Auto) 0.0, Absolute Neuts (auto ) 0.1 L, Absolute Lymphs (auto) 0.87, Total Counted Not Reportable, Differential Comment SCANNED, Diff Path Review September foll, Platelet Estimate MKD DEC, Hypochromasia 2+, Poikilocytosis 1+, Anisocytosis 3+, Microcytosis 2+, Macrocytosis 1+, Ovalocytes 1+ 07/01/17 14:00: PT 13.6, INR 1.1, APTT 28.3 07/01/17 14:00: Sodium 139, Potassium 3.7, Chloride 106, Carbon Dioxide 25.0, Anion Gap 8, BUN 15, Creatinine 0.71, Estim Creat Clear Calc 67.96, Est GFR ( MDRD) Af Amer 106, Est GFR (MDRD) Non-Af 88, BUN/Creatinine Ratio 21.0 H, Glucose 94, Calcium 9.0 07/01/17 14:00: Blood Type A POSITIVE, Antibody Screen NEGATIVE 07/02/17 05:20: Sodium 138, Potassium 3.8, Chloride 105, Carbon Dioxide 24.0, Anion Gap 9, BUN 12, Creatinine 0.76, Estim Creat Clear Calc 60.70, Est GFR ( MDRD) Af Amer 99, Est GFR (MDRD) Non-Af 82, BUN/Creatinine Ratio 15.8, Glucose 105, Calcium 8.8 07/02/17 05:20: WBC 1.3 L*, RBC 3.51 L, Hgb 9.5 L, Hct 32.9 L, MCV 93.7, MCH 27.1, MCHC 28.9 L, RDW 20.3 H, RDW Differential 67.4 H, Plt Count 118 L, MPV 9.6 , Immature Gran % (Auto) 0.800, Neut % (Auto) 11.2 L, Lymph % (Auto) 78.2 H, [place] % (Auto) 9.0, Eos % (Auto) 0.8, Baso % (Auto) 0.0, Absolute Neuts (auto) 0.2 L, Absolute Lymphs (auto) 1.04, Total Counted Not Reportable, Differential Comment SCANNED, Diff Path Review May foll, Hypochromasia 3+, Anisocytosis 3+, Target Cells 1+ Current Medications Acetaminophen (Tylenol) 650 mg PO Q6H PRN PRN PRN Reason: Non-cardiac pain (mod-severe) Last Admin: 07/01/17 22:36 Dose: 650 mg Hydrocodone Bitart/Acetaminophen ([place] 5mg-325mg) 1 - 2 tablet PO Q6H PRN PRN PRN Reason: Moderate-severe pain Alprazolam (Xanax) 0.5 mg PO TID [facility] Last Admin: 07/02/17 05:07 Dose: 0.5 mg Hydralazine HCl (Apresoline) 10 mg IV Q4H PRN PRN PRN Reason: SBP > 160 Sodium Chloride () 1,000 mls @ 100 mls/hr IV .Q10H [facility] Last Admin: 07/02/17 11:25 Dose: 100 mls/hr Lisinopril (Zestril) 10 mg PO DAILY [facility] Last Admin: 07/02/17 10:10 Dose: 10 mg Magnesium Hydroxide (Milk Of Magnesia) 30 ml PO DAILY PRN PRN PRN Reason: Constipation Morphine Sulfate (Morphine) 1 - 2 mg IV Q4H PRN PRN PRN Reason: PAIN Ondansetron HCl (Zofran) 4 mg IV Q8H PRN PRN PRN Reason: NAUSEA/VOMITING Paroxetine HCl (Paxil) 20 mg PO BID [facility] Last Admin: 07/02/17 09:02 Dose: 20 mg Sodium Chloride () 5 - 30 ml IV UD PRN PRN Reason: SALINE FLUSH Sodium Chloride ([place] Nasal [place]) 1 spray NASAL 4X/DAY [facility] Last Admin: 07/02/17 09:02 Dose: 1 spray Temazepam (Restoril) 15 mg PO QHS PRN PRN PRN Reason: insomnia Assessment/Plan 1. Epistaxis likely due to thrombocytopenia * Nasal spitting up some blood overnight from the back of her throat. Epistaxis didnt recur * Has no complaints otherwise. Vitals have remained stable. * Received 2 units of irradiated platelets overnight. * CBC today shows WBC of 1.3 and platelets are up to 118 today from 45 yesterday on admission.. * Reviewed by ENT surgeon. ENT surgeon, does not require any further visits for epistasis. Nasal packing to remain until Monday of this week. Recommend to apply saline nasal drops to right unpack nasal cavity 4 times daily. To follow-up with ENT doctor in this clinic this Monday. * Hematology oncology on board. 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 Was started on lisinopril due to possibility of elevated blood pressure causing epistasis. * Will monitor. * 2. Myelodysplastic syndrome * follows up with oncologist. On Vicayza (Azacitadine) * DR Penn reviewed patient. In the process for allogeneic bone marrow transplant * stable * 3. DVT prophylaxis: PCDs Disposition: will dc home today. To apply nasal saline spray in right nostril 4x daily. Nasal packing to remain in place till next Monday. To follow up with ENT doctor on Monday, and with Dr Penn twice weekly for counts and rbcs /transfusion support as needed. This note was generated with [employer] dictation software. It may contain incorrect words, spelling, and punctuation that were not noted in checking the note before signing. * Code Visit Inpatient E&M: 27884 Subs Hosp L2
--- NOTE | 2017-07-02 11:41 | PCM.DC ---
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) Reason(s) for Visit for Discharge Instructions: epistaxis You will use the following diet at home:: Cardiac Your food should be the consistency of: Regular Your liquids should be the consistency of: Regular/Thin Discharge Activity: Return to Normal Activity May resume sexual activity in: No Restrictions Weight Bearing Status: Weight bearing as tolerated Call your doctor if you observe: - - nose bleeding Allergies/Adverse Reactions: Allergies Sulfa (Sulfonamide Antibiotics) Allergy (Verified 07/01/17 12:10) Hives Medications to take at Discharge ALPRAZolam [Xanax] 0.5 mg PO TID 04/24/17 Paroxetine HCl 20 mg PO BID 04/24/17 Lisinopril [Zestril] 10 mg PO DAILY #30 tab 07/02/17 Sodium Chloride 0.65% [[place] Nasal [place]] 1 spray NASAL 4X/DAY #1 spray.btl 07/02/17 The following prescriptions were given: Lisinopril [Zestril] 10 mg PO DAILY #30 tab Sodium Chloride 0.65% [[place] Nasal [place]] 1 spray NASAL 4X/DAY #1 spray.btl Primary Care Physician: Masoud Acosta MD [Primary Care Provider] - Please Follow Up With: Tomy Osorio MD When: on Monday07/05/17 Please Follow Up With: Mukesh Penn DO When: twice weekly in his office Proposed Discharge Date: 07/02/17
--- NOTE | 2017-07-02 11:48 | DS.PCM_ITS ---
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 She was admitted with a complaint of left nasal epistasis for 1 day. Patient had been seen by Dr. Penn for similar complaint of the right nostril bleeding subsequently resolved. She presented to the ED on 2017 with a complaint of left nostril bleeding which she described as quitting. Nasal packing was applied. However platelet was 45,000 and so she was admitted and managed for epistasis due to thrombocytopenia. She received 2 units of apheresed, irradiated, platelets. She was noted to also be slightly hypertensive with blood pressure in the 150 systolic. She was therefore started on lisinopril 10 mg daily. ENT was consulted as well as hematology oncology. ENT reviewed patient and decided to keep nasal packing in place in the left nostril until Monday, 05 July 2017. Plan is also to apply nasal spray to the right nostril 4 times daily. She is to follow-up with Dr. Penn the oncologist in his office twice weekly for counts and transfusion as needed. She remained stable. Home medication was reviewed and reconciled. She was discharged home on 07/02/2017 to follow-up with primary care doctor, ENT surgeon and music industry intern oncologist.] Discharge Diet: No Restrictions Discharge Activity: Return to Normal Activity May resume sexual activity in: No Restrictions Weight Bearing Status: Weight bearing as tolerated Call your doctor if you observe: - - nose bleeding Home Medications: Medications to take at Discharge ALPRAZolam [Xanax] 0.5 mg PO TID 04/24/17 Paroxetine HCl 20 mg PO BID 04/24/17 Lisinopril [Zestril] 10 mg PO DAILY #30 tab 07/02/17 Sodium Chloride 0.65% [[place] Nasal [place]] 1 spray NASAL 4X/DAY #1 spray.btl Following Prescrptions Were Given to Patient: Lisinopril [Zestril] 10 mg PO DAILY #30 tab Sodium Chloride 0.65% [[place] Nasal [place]] 1 spray NASAL 4X/DAY #1 spray.btl Primary Care Physician: Masoud Acosta MD [Primary Care Provider] - Please Follow Up With: Tomy Osorio MD When: on Monday07/05/17 Please Follow Up With: Mukesh Penn DO When: twice weekly in his office Additional Instructions: epistaxis Disposition: Home Minutes spent on discharge:: 20 Patient Condition:: Good Meaningful Use Info Meaningful Use Diagnoses (Choose all that apply): None applicable Code Visit Inpatient E&M: 48657 Disch Hosp
[2017-07-02] MEDS: Acetaminophen 325 MG Tablet 650 MG PO (12:10)
[2017-07-03 10:30] LABS: Pathologist Review Reviewed
[2017-07-03 10:32] LABS: Pathologist Review Reviewed
== END 2017-07-02 14:29 | disposition home or self-care (01) | DRG 813 ==
LOC: ED 13:26 → PCU 13:54
PROVIDERS: Admitting Provider Student in an Organized Health Care Education/Training Program; Emergency Provider Emergency Medicine; Family Provider Family Medicine; PCP Family Medicine; Visit Provider Student in an Organized Health Care Education/Training Program
DX: D69.1 Qualitative platelet defects (principal); D61.818 Other pancytopenia; D46.Z Other myelodysplastic syndromes; R04.0 Epistaxis
CPT/HCPCS: 36415; 80048; 85025; 85610; 85730; 86850; 86900; 86965; 99282; J7030; J7040; P9037; A4216

== ENCOUNTER → 2017-07-05 13:44 | Outpatient (CLI) | payer OTHER, SELFPAY ==
[2017-07-05 13:50] VITALS: BP 111/58; PULSE 75; RESP 16; TEMP 36.4; O2SAT 100
[2017-07-05 15:02] VITALS: BP 120/63; PULSE 74; RESP 16; TEMP 36.4; O2SAT 96
[2017-07-05 15:20] VITALS: BP 118/65; PULSE 73; RESP 16; TEMP 36.4; O2SAT 97
== END ==
PROVIDERS: Family Provider Family Medicine; PCP Family Medicine; Visit Provider Internal Medicine Hematology & Oncology
DX: D46.Z Other myelodysplastic syndromes (principal)
CPT/HCPCS: 36430; 86900; 86965; J7040; P9037; A4216

== ENCOUNTER → 2017-08-02 12:28 | Outpatient (CLI) | payer SELFPAY ==
[2017-08-02 12:34] VITALS: BP 113/66; PULSE 84; RESP 18; TEMP 36; O2SAT 99
[2017-08-02 14:36] VITALS: BP 110/66; PULSE 88; RESP 18; TEMP 36.4; O2SAT 99
[2017-08-02 14:55] VITALS: BP 117/72; PULSE 86; RESP 16; TEMP 36.4; O2SAT 100
[2017-08-02 15:22] VITALS: BP 114/65; PULSE 85; RESP 18; TEMP 36.4; O2SAT 98
[2017-08-02 15:40] VITALS: BP 128/72; PULSE 73; RESP 18; TEMP 36.3; O2SAT 100
[2017-08-02 16:00] VITALS: BP 121/68; PULSE 85; RESP 18; TEMP 36.2; O2SAT 100
== END ==
PROVIDERS: Family Provider Family Medicine; PCP Family Medicine; Visit Provider Internal Medicine Hematology & Oncology
DX: D46.9 Myelodysplastic syndrome, unspecified (principal)
CPT/HCPCS: 36430; 86644; 86900; 86965; J7040; P9037; A4216

== ENCOUNTER → 2017-08-22 10:32 | Outpatient (CLI) | payer OTHER, SELFPAY ==
[2017-08-22 10:45] VITALS: BP 129/70; PULSE 16; RESP 16; TEMP 36.6; O2SAT 98
[2017-08-22 11:35] VITALS: BP 118/74; PULSE 71; RESP 16; TEMP 36.8; O2SAT 96
[2017-08-22 12:10] VITALS: BP 140/84; PULSE 71; RESP 16; TEMP 36.7; O2SAT 99
== END ==
PROVIDERS: Family Provider Family Medicine; PCP Family Medicine; Visit Provider Internal Medicine Hematology & Oncology
DX: D46.Z Other myelodysplastic syndromes (principal)
CPT/HCPCS: 36430; 86900; 86965; J7040; P9037; A4216

== ENCOUNTER 2018-04-18 03:42 | Emergency (ER) | payer OTHER, SELFPAY ==
[2018-04-18 03:43] VITALS: BP 118/70; PULSE 114; RESP 22; TEMP 38.7; O2SAT 91; BMI 27.6
[2018-04-18] MEDS: 0.9% Normal Saline 1,000 ML 999 ML IV ×2 (04:00→07:15)
--- NOTE | 2018-04-18 04:00 | RAD_ITS ---
STUDY: X-RAY CHEST REASON FOR EXAM: Female, 62 years old. General illness. Nausea, vomiting, diarrhea, cough, and fever. Status post bone marrow transplant 03/19. TECHNIQUE: Single AP portable view of the chest. Patient is rotated to the right. COMPARISON: None. FINDINGS: There is diffuse bilateral interstitial prominence with areas of denser infiltration in the lower lung barros, right greater than left. Findings may represent CHF with pulmonary edema. Interstitial prominence might also be due to an inflammatory or atypical infectious process. Lower lobe pneumonia cannot be excluded. There is no demonstrated pleural abnormality. There is borderline cardiomegaly. Normal mediastinum and monica. Normal visualized pulmonary arteries. Normal visualized aortic arch and descending thoracic aorta. There are degenerative changes of the visualized thoracic spine. There is degenerative arthrosis of the right shoulder. There is no demonstrated abnormality of the visualized soft tissue structures of the upper abdomen. RAD/Chest 1 View (Portable) IMPRESSION: Diffuse interstitial prominence with denser lower lobe infiltrates, as above. Borderline heart size. Electronically Signed: Osvaldo Torres MD at 5:16 EST , Service support ,
--- NOTE | 2018-04-18 04:00 | EKG12_ITS ---
Test Reason : GEN ILLNESS Blood Pressure : / mmHG Vent. Rate : 107 BPM Atrial Rate : 107 BPM P-R Int : 172 ms QRS Dur : 140 ms QT Int : 394 ms P-R-T Axes : 036 080 004 degrees QTc Int : 525 ms Sinus tachycardia with occasional Premature ventricular complexes Possible Left atrial enlargement Right bundle branch block Abnormal ECG Confirmed by MARGARETTE LOCKHART, NOEMI ([id number]), social media editor PATRICIO SARKAR ([id number]) on 04/20/2018 2:34:22 PM Referred By: ZAKIYA Confirmed By:NOEMI PFEIFFER MD
[2018-04-18 04:15] LABS: Absolute Lymphocyte Count 0.45 X10^3/ul (0.83-4.51); Absolute Neutrophil Count 2.8 X10^3/uL (2.0-7.7); Basophil# 0.03 X10^3/uL; Basophil% 0.7 % (0-1); Eosinophil# 0.25 X10^3/uL; Eosinophils% 5.5 % (0-5); Hematocrit 37.5 % (37-47); Hemoglobin 12.2 g/dl (12.0-15.0); Lymphocyte # 0.45 X10^3/ul (4.0); Mean Corp Hgb Conc 32.5 g/gl (32-36); Mean Corpuscular Hgb 33.1 pg (27.0-32.0); Mean Corpuscular Volume 101.6 fL (81-99); Mean Platelet Vol. 9.2 fl (6.2-12.0); Monocyte# 0.96 X10^3/uL; Monocyte% 21.2 % (0-10); Neutrophil # 2.82 X10^3/uL (2.7-7.7); Neutrophil % 62.4 % (47-70); Platelet Count 353 K/mm3 (150-450); RBC Distribution Width CV 15.1 % (11.6-14.6); RBC Distribution Width SD 55.3 fl (35.1-43.9); Red Blood Count 3.69 M/mm3 (4.2-5.4); White Blood Count 4.5 K/mm3 (4.4-11.0)
[2018-04-18 04:17] LABS: POSITIVE COUNT NO; POSITIVE DIFFERENTIAL YES; POSITIVE MORPHOLOGY YES
[2018-04-18 04:18] LABS: Differential Indicated SCAN CRITERIA MET
[2018-04-18 04:26] LABS: Lactic Acid 1.8 mmol/L (0.4-2.0)
[2018-04-18 04:27] LABS: ALB/GLOB Ratio 0.6 RATIO (0.9-2.4); AST(SGOT) 41 U/L (15-37); Alanine Aminotransfer ALT/SGPT 38 U/L (13-56); Albumin, Serum 2.6 g/dL (3.2-5.0); Alkaline Phosphatase 425 U/L (45-117); Anion Gap 8 (5-15); BUN 14 mg/dL (7-18); Calcium,Total 8.7 mg/dL (8.5-10.1); Chloride 106 mmol/L (98-107); Creatinine, Serum 0.88 mg/dL (0.55-1.02); EST Glomerular Filtration Rate 69 mL/min (>60); Est Glom Filt Rate - Afr Amer 84 mL/min (>60); Estimated Creatinine Clearance 63.63 ml/min; Globulin 4.2 g/dL (2.2-4.2); Glucose 138 mg/dL (74-106); Potassium 3.1 mmol/L (3.5-5.1); Protein, Total 6.8 g/dL (6.4-8.2); Sodium Level 140 mmol/L (136-145)
[2018-04-18 04:51] LABS: Allen Test POS; Base Excess -3 mmol/L (-2 to +2); Bicarbonate 21.3 mmol/L (22-26); Blood Gas Specimen Type ART; O2 Delivery Device Nasal Can; PO2 77 mmHG (75-100); SITE L Radial; SO2 96 % (95-99); Time Given 440; Total Carbon Dioxide 22 mmol/L; pCO2 32.5 mmHg (35-45); pH 7.42 (7.35-7.45)
[2018-04-18] MEDS: Acetaminophen 500 MG Tablet 1000 MG PO (04:56)
[2018-04-18 05:15] VITALS: BP 102/58; PULSE 103; RESP 22; O2SAT 94
[2018-04-18 05:36] LABS: Mucous, Urine 0 SEEN /hpf (<or=2+); Red Blood Cells-Urine 0 SEEN /hpf (0-5)
[2018-04-18 05:48] LABS: Color, Urine Yellow (Yellow); Glucose, Dipstick Normal (Normal); Ketone-Dipstick Negative (Negative); Leukocyte Esterase-Dipstick 25 /ul (Negative); Nitrite-Dipstick Negative (Negative); Occult Blood-Urine 10 /ul (Negative); Protein-Dipstick 15 mg/dl (Negative); Specific Gravity, Urine 1.015 (1.002-1.030); Urine Clarity Clear (Clear); Urine Urobilinogen 4 mg/dl (Normal)
[2018-04-18 05:49] LABS: Urine Bilirubin Dipstick 1 mg/dL (Negative)
[2018-04-18 05:50] LABS: Bacteria RARE /hpf (None Seen); Squamous Epithelial Cells - UA 0-5 SEEN /hpf (5-10); White Blood Cells 0-5 SEEN /hpf (0-5)
--- NOTE | 2018-04-18 06:16 | ED.VISSUMM ---
- ER Visit Summary Date of Service: 04/18/18 Chief Complaint: Nausea vomiting diarrhea and fever History of Present Illness: The patient is a 62 F who presents with nausea vomiting diarrhea and fever. She had a recent bone marrow transplant. She has a history of a myelodysplastic syndrome. She reports 1 week of productive cough. She developed fever last night of 102.9. She woke up about 2 hours before presentation with nausea vomiting and diarrhea. She has had 3-4 episodes of nonbloody nonbilious emesis. Physical Examination: Heart rate 114 temperature 101.6 respiratory rate 22 blood pressure 118/70 Moist mucous membranes Heart regular rhythm tachycardia Tachypnea but lungs are clear Abdomen soft Mild diffuse nonfocal tenderness without guarding without rebound Alert Test Results: EKG shows sinus rhythm at a rate of 107 with PVCs and right bundle branch block. Labs notable for potassium 3.1, glucose 138, alkaline phosphatase 425. Lactic acid normal. Blood and urine cultures were sent. ABG shows normal pH. Chest x-ray shows bilateral lower infiltrates. Emergency Department Course and Treatment: Given patient's clinical history she was treated with IV meropenem shortly after evaluation due to concern for neutropenic fever. She was given IV fluids and Tylenol. Laboratory workup and imaging as above. Given her history of bone marrow transplant I did talk to [facility] and patient will be transferred to that facility. Treatment Plan: [] Disposition: Transfer to [facility] Impression: Healthcare associated pneumonia History of bone marrow transplant This note was generated with [employer] dictation software. It may contain incorrect words, spelling, and punctuation that were not noted in review of the chart prior to signing ED Disposition - Plan for ED Patient: Chief Complaint: General Illness Referrals: Masoud Acosta MD [Primary Care Provider] -
[2018-04-18 06:42] VITALS: BP 95/52; PULSE 96; RESP 23; O2SAT 95
[2018-04-18 06:50] VITALS: TEMP 37.2
[2018-04-18 07:00] VITALS: BP 94/54; PULSE 93; RESP 20; TEMP 37.2; O2SAT 94
[2018-04-18 07:15] VITALS: BP 90/52; PULSE 90; RESP 24; O2SAT 96
--- NOTE | 2018-04-18 07:15 | ED.RN ---
NOTIFIED DR. SIGALA OF HYPOTENSION. DR. SIGALA GAVE VERBAL ORDER FOR BOLUS OF NORMAL SALINE, 1,000ML.
== END 2018-04-18 08:14 | disposition short-term general hospital (02) ==
LOC: ED 04:30
PROVIDERS: Emergency Provider Emergency Medicine; Family Provider Family Medicine; PCP Family Medicine
DX: J18.9 Pneumonia, unspecified organism (principal); Z94.81 Bone marrow transplant status; Y95 Nosocomial condition; D46.9 Myelodysplastic syndrome, unspecified; I10 Essential (primary) hypertension; Z79.899 Other long term (current) drug therapy
CPT/HCPCS: 36600; 71045; 80053; 81001; 82803; 83605; 85025; 87040; 87086; 87088; 93005; 96361; 96365; 96366; 99285; J2185; J7030; A4216

== ENCOUNTER 2018-06-27 03:30 | Inpatient (IN) | payer OTHER, SELFPAY ==
[2018-06-27 03:30] VITALS: BP 109/80; PULSE 109; RESP 16; TEMP 37.2; O2SAT 95; BMI 24.4
--- NOTE | 2018-06-27 03:38 | RAD_ITS ---
STUDY: X-RAY - LEFT HIP REASON FOR EXAM: Female, 62 years old. Fall. Left hip pain TECHNIQUE: 2 views of the hip. COMPARISON: None. FINDINGS: There is marked shortening of the left femoral neck may be due to impacted fracture or an old pathology such as slipped capitis epiphysis. Further evaluation by CT scan can be helpful. Normal acetabulum. Normal hip joint. Normal visualized superior and inferior pubic rami and ischial tuberosities. RAD/HIP, UNI W/ Pelvis 2-3 Views IMPRESSION: There is marked shortening of the left femoral neck may be due to impacted fracture or an old pathology such as slipped capitis epiphysis. Further evaluation by CT scan can be helpful. Electronically Signed: Kathleen Keller MD at 5:05 EST Tel , Service support ,
--- NOTE | 2018-06-27 04:01 | RAD_ITS ---
STUDY: X-RAY CHEST REASON FOR EXAM: Female, 62 years old. Fall. Left hip pain TECHNIQUE: Single AP portable view of the chest. COMPARISON: None. FINDINGS: The lungs are clear and expanded. There is no demonstrated pleural abnormality. Normal size heart. Normal mediastinum and monica. Normal visualized pulmonary arteries. Normal visualized aortic arch and descending thoracic aorta. There is a levoscoliosis of the thoracic spine. There is degenerative osteoarthritis of the bilateral shoulders. There is no demonstrated abnormality of the visualized soft tissue structures of the upper abdomen. RAD/Chest 1 View (Portable) IMPRESSION: Degenerative changes, as described above. No demonstrated acute cardiopulmonary process. Electronically Signed: Kathleen Keller MD at 5:01 EST Tel , Service support ,
--- NOTE | 2018-06-27 04:34 | EKG12_ITS ---
Test Reason : Blood Pressure : / mmHG Vent. Rate : 101 BPM Atrial Rate : 101 BPM P-R Int : 128 ms QRS Dur : 120 ms QT Int : 378 ms P-R-T Axes : 048 074 024 degrees QTc Int : 490 ms Sinus tachycardia Possible Left atrial enlargement Non-specific intra-ventricular conduction delay Borderline ECG Confirmed by MARGARETTE LOCKHART, NOEMI ([id number]), order editor PATRICIO SARKAR ([id number]) on 07/03/2018 11:18:24 AM Referred By: ZAKIYA Confirmed By:NOEMI PFEIFFER MD
--- NOTE | 2018-06-27 04:41 | RAD_ITS ---
STUDY: X-RAY - LEFT KNEE REASON FOR EXAM: Female, 62 years old. Left knee pain TECHNIQUE: 3 view(s) of the knee. COMPARISON: None. FINDINGS: Normal visualized distal femur. Normal visualized proximal tibia and fibula. Normal proximal tibiofibular articulation. There is moderate degenerative arthrosis of the medial femorotibial compartment with moderate joint space narrowing. Normal lateral femorotibial compartment. There is mild degenerative arthrosis of the patellofemoral articulation. The soft tissue structures are unremarkable. RAD/Knee 1 or 2 Views IMPRESSION: Degenerative arthrosis. Electronically Signed: Kathleen Keller MD at 5:44 EST Tel , Service support ,
[2018-06-27] MEDS: Ondansetron 4 MG/2 ML Vial IV (04:53)
[2018-06-27] MEDS: Morphine 2 MG/ML Syringe IV ×2 (04:53→14:09)
[2018-06-27 05:05] LABS: Absolute Lymphocyte Count 1.46 X10^3/ul (0.83-4.51); Absolute Neutrophil Count 6.6 X10^3/uL (2.0-7.7); Basophil# 0.02 X10^3/uL; Basophil% 0.2 % (0-1); Eosinophil# 0.04 X10^3/uL; Eosinophils% 0.4 % (0-5); Hematocrit 41.3 % (37-47); Hemoglobin 13.1 g/dl (12.0-15.0); Lymphocyte # 1.46 X10^3/ul (4.0); Lymphocyte % 15.8 % (19-41); Mean Corp Hgb Conc 31.7 g/gl (32-36); Mean Corpuscular Volume 110.4 fL (81-99); Mean Platelet Vol. 9.3 fl (6.2-12.0); Monocyte# 1.01 X10^3/uL; Monocyte% 10.9 % (0-10); Neutrophil # 6.62 X10^3/uL (2.7-7.7); Neutrophil % 71.7 % (47-70); Platelet Count 98 K/mm3 (150-450); RBC Distribution Width CV 18.9 % (11.6-14.6); RBC Distribution Width SD 73.4 fl (35.1-43.9); Red Blood Count 3.74 M/mm3 (4.2-5.4); White Blood Count 9.2 K/mm3 (4.4-11.0)
[2018-06-27 05:06] LABS: Differential Indicated SCAN CRITERIA MET; POSITIVE COUNT NO; POSITIVE DIFFERENTIAL NO; POSITIVE MORPHOLOGY YES
[2018-06-27 05:12] LABS: Prothrombin Time (Protime)PT. 13.2 SECONDS (11.7-14.9)
[2018-06-27 05:14] LABS: Anion Gap 8 (5-15); BUN 7 mg/dL (7-18); Calcium,Total 8.7 mg/dL (8.5-10.1); Chloride 107 mmol/L (98-107); Creatinine, Serum 0.78 mg/dL (0.55-1.02); EST Glomerular Filtration Rate 80 mL/min (>60); Est Glom Filt Rate - Afr Amer 96 mL/min (>60); Estimated Creatinine Clearance 74.47 ml/min; Glucose 100 mg/dL (74-106); Potassium 3.7 mmol/L (3.5-5.1); Sodium Level 143 mmol/L (136-145)
--- NOTE | 2018-06-27 05:21 | HP.PCM_ITS ---
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 In the ED workup included T 99, heart rate 109, BP 109/80, respiratory rate 16, 95% on room air, CBC with WBC 9.2, hemoglobin 13.1, platelet 98, pending coags, BMP not market appearing, plain film of the hip and pelvis with market shortening of the left femoral neck secondary to impacted left femoral neck fracture, chest x-ray with no acute cardiopulmonary process, plain film left knee ordered and pending upon evaluation given discomfort with palpation of the left knee, EKG with sinus tachycardia with no acute evidence of ischemia. Per discussion with patient prior to recent bzlfm-ainfvx-mqqe diagnosis in April she had been more active and performed all her own ADLs. Dr. Melo consulted per ED and planned operative intervention on day of ED presentation. 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 Psychiatric History: Anxiety, Depression HEDGE TRIMMER History: No pertinent HEDGE TRIMMER history Lives: Spouse/ Significant Other Smoking Status: Never smoker Tobacco Use: Non-smoker Alcohol: None Drugs: None - *Family History Maternal History Items: - - Patient denies any marked maternal family history including heart disease, diabetes or cancer. Paternal History Items: - - Patient notes a paternal family history of cancer, young, unclear cancer type. Review of Systems Constitutional: Reports: Malaise, Weakness, Fatigue. Denies: Chills, Fever, Weight Change HEENT: Denies: Head Aches, Sinus Congestion, Sinus Drainage Cardiovascular: Denies: Chest Pain, Palpitations Respiratory: Denies: Cough, Shortness of breath at rest, Sputum production Gastrointestinal: Denies: Abdominal Pain, Nausea, Vomiting Genitourinary: Denies: Dysuria Musculoskeletal: Reports: Joint Pain, Joint stiffness, Joint swelling, Joint Tenderness, Leg Pain Skin: Denies: Rash, Wounds Neurological: Denies: Numbness, Tingling, Focal weakness Psychiatric: Reports: Anxiety, Depression. Denies: Homicidal Ideations, Suicidal Ideations Hematologic/ Lymphatic: Reports: Anemia. Denies: Easy Bruising, Easy Bleeding VTE Information - Inpt Only VTE Present on Admission: No VTE Mechan Device Prophylaxis: SCD's VTE Pharm Prophylaxis ordered?: No Reason prophylaxis not ordered:: Medical Contraindication - Holding for OR. Patient Problems: Active and Suspected Problems Closed left hip fracture (Acute) Subjective: Seated upright in the ED bed, fatigued appearance, ongoing discomfort to the left hip. Objective: Physical Examination: General: awake, alert, oriented x 3 and cooperative, seated upright in bed, fatigued, uncomfortable appearing. Skin: normal color, turgor, no icterus, cyanosis. HEENT: AT/NC, EOMI, PERRLA, dry MM, no carotid bruits or JVD noted. Lungs: CTA bilaterally, moderate effort, mild decrease BL bases, no rales, ronchi or wheezing. Heart: Regular rate and rhythm; no gallop, rub audible. Abdomen: soft, NTTP, ND, normal BS, no HSM. Extremities: no cyanosis, clubbing, status post recent fall with left hip fracture, pedal to proximal rob edema. Neurological: patient awake, alert, oriented x 3; cognitive function intact; pupils equally reactive to light and accomodation; cranial nerves II-XII grossly normal, moving all 4 extremities although limited secondary to recent fall with left hip fracture, edematous left lower extremity pedal to proximal rob, sensation intact, strength accordingly severely globally decreased. Psychiatric: affect appears fatigued, no acute evidence of depressive or anxiety feelings. - Physical Exam Vital Signs Temp Pulse Resp BP Pulse Ox 99.0 F 109 H 16 109/80 95 06/27/18 03:30 06/27/18 03:30 06/27/18 03:30 06/27/18 03:30 06/27/18 03:30 Oxygen Delivery Method Room Air Weight: 160 lb 7.944 oz Body Mass Index (BMI) 24.4 Laboratory Tests Past 24 Hrs 06/27/18 06/27/18 06/27/18 04:50 04:50 04:50 WBC 9.2 RBC 3.74 L Hgb 13.1 Hct 41.3 MCV 110.4 H MCH 35.0 H MCHC 31.7 L RDW 18.9 H RDW Differential 73.4 H Plt Count 98 L MPV 9.3 Immature Gran % (Auto) 1.000 H Neut % (Auto) 71.7 H Lymph % (Auto) 15.8 L [place] % (Auto) 10.9 H Eos % (Auto) 0.4 Baso % (Auto) 0.2 Absolute Neuts (auto) 6.6 Absolute Lymphs (auto) 1.46 Total Counted Pending PT Pending INR Pending Sodium Pending Potassium Pending Chloride Pending Carbon Dioxide Pending Anion Gap Pending BUN Pending Creatinine Pending Est GFR (MDRD) Af Amer Pending Est GFR (MDRD) Non-Af Pending BUN/Creatinine Ratio Pending Glucose Pending Calcium Pending Assessment/Plan All Active Problems Epistaxis (Acute) Closed left hip fracture (Acute) The patient is a 62 y/o W[employer] F w/ PMHx: 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 (1) General debility, L hip pain s/p mechanical fall w/ impacted left femoral neck fracture: ED workup included T 99, heart rate 109, BP 109/80, respiratory rate 16, 95% on room air, CBC with WBC 9.2, hemoglobin 13.1, platelet 98, pending coags, BMP not market appearing, plain film of the hip and pelvis with marked shortening of the left femoral neck secondary to impacted left femoral neck fracture, chest x-ray with no acute cardiopulmonary process, plain film left knee ordered and pending upon evaluation given discomfort with palpation of the left knee, EKG with sinus tachycardia with no acute evidence of ischemia. Will admit to [facility], maintain NPO, continue gentle IVFs, obtain TSH, Mag level, suarez placement, monitor I/Os, frequent positioning, fall precautions, type and screen, pain, anti-emetic regimen. PT/OT following operative intervention. CM consulted for discharge planning. Per [facility] Perioperative Cardiac Risk Index given 3-4 METS, age 62, Cr normal, partially dependent living status given recent debility, ASA 3 for orthopedic intervention, estimated risk of perioperative myocardial infarction or cardiac arrest 1.12%. EKG without acute findings. CXR without acute findings. Discussed risk and patient and amenable. Preference to remain locally. 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 (3) Chronic Thrombocytopenia: Admission Plts 98, prior noted 120 range, trend. (4) Chronic Anemia: Admission Hgb 13.1, improved from prior, noted trend prior 8-9, stable, trend. (5) Anxiety and Depression: Continue home Paxil and olanzapine regimen. (6) GERD: Famotidine. (7) DVT Prophylaxis: SCDs, defer chemoprophylaxis given planned OR. (8) CODE status: Discussed CODE status at length including difference between FULL code, DNR-CCA and DNR-CC status. Following discussions about the differences in these status, requested DNR-CCA, no intubation status. Advanced Care Planning Face to Face Time: 16 minutes. Code Visit Inpatient E&M: 36870 Init Hosp L3 Procedures: 55517 Advncd Care Plan 30 Min
[2018-06-27 05:24] LABS: Anisocytosis 1+; Differential Comment SCAN; Macrocytosis 1+; Polychromasia 1+
--- NOTE | 2018-06-27 05:43 | CT_ITS ---
STUDY: CT LEFT HIP WITHOUT CONTRAST REASON FOR EXAM: Female, 62 years old. Trauma. Left hip pain RADIATION DOSAGE (If Supplied By Facility): CTDIvol = ( 19.03 ) mGy, DLP = ( 519.23 ) mGycm TECHNIQUE: Thin section transaxial imaging of the ankle was obtained, with sagittal and coronal reconstructed images. Individualized dose optimization techniques were used for this CT. COMPARISON: None. FINDINGS: There is an impacted fracture of the left femoral neck. Normal acetabulum. Normal hip joint. Normal visualized superior and inferior pubic rami and ischial tuberosities. CT/Extremity Lower without Contra IMPRESSION: There is an impacted fracture of the left femoral neck. Electronically Signed: Kathleen Keller MD at 7:09 EST Tel , Service support ,
--- NOTE | 2018-06-27 06:13 | ED.VISSUMM ---
- ER Visit Summary Date of Service: 06/27/18 Chief Complaint: Left hip pain History of Present Illness: The patient is a 62 F who presents with left hip pain. She fell yesterday. She stumbled on her close. She has been attempting antunez-white with a walker. No other injuries. No chest pain shortness of breath back pain abdominal pain difficulty breathing or injury to the other extremities. She has been unable to bear weight today. She was brought in by EMS and complains of severe pain to the left hip. Physical Examination: Heart rate 109 vitals otherwise unremarkable Moist mucous membranes Heart regular rhythm tachycardia Lungs are clear Abdomen soft Patient has painful limited range of motion of the left hip she also has some tenderness over the left knee no bony deformity her extremity is shortened she has brisk capillary refill normal sensation distally Test Results: EKG shows sinus rhythm at a rate of 101. CBC BMP INR were pending at the time of admission. The x-ray on my review shows no fracture. Chest x-ray on my review shows no acute process. Left hip and pelvis x-ray on my review shows findings suggestive of an impacted femoral neck fracture. Emergency Department Course and Treatment: After my review of images I did speak to orthopedics on-call, Dr. Melo. Patient does also have a history of myelodysplastic syndrome marrow transplant and rseri-gkzbnj-flvu disease. Patient was discussed with hospitalist for admission. I was called back by the orthopedic surgeon who on review of images notes that this may be related to some chronic injury and requested a CT to further clarify and confirm acute fracture. CT pending. Patient has been admitted to the medical service. Treatment Plan: [] Disposition: Admit Impression: Left hip fracture This note was generated with [employer] dictation software. It may contain incorrect words, spelling, and punctuation that were not noted in review of the chart prior to signing ED Disposition - Plan for ED Patient: Disposition: Acute Care [facility]
[2018-06-27 06:22] VITALS: BP 114/72; PULSE 92; RESP 16; TEMP 36.6; O2SAT 94
[2018-06-27 06:29] VITALS: BMI 22.8
[2018-06-27 06:36] VITALS: BMI 22.9
[2018-06-27 07:04] LABS: Magnesium 1.7 mg/dL (1.6-2.6); Phosphorus 3.7 mg/dL (2.5-4.9)
[2018-06-27] MEDS: 0.9% Normal Saline 1,000 ML 100 ML IV ×2 (07:32→17:48)
[2018-06-27] MEDS: 0.9% NaCl Peripheral Flush Adult/Peds IV ×2 (07:32→14:09)
--- NOTE | 2018-06-27 08:47 | PCM.PN.BLA ---
Progress Note CT scan was reviewed. Patient has confirmed displaced subcapital femoral neck fracture. Recommend hemiarthroplasty versus total hip. Keep patient n.p.o. Will order antibiotics and set up a lot of time.
[2018-06-27 10:01] LABS: AST(SGOT) 15 U/L (15-37); Alanine Aminotransfer ALT/SGPT 23 U/L (13-56); Albumin, Serum 2.8 g/dL (3.2-5.0); Alkaline Phosphatase 92 U/L (45-117); Bilirubin, Direct 0.19 mg/dL (0.00-0.30); Globulin 2.3 g/dL (2.2-4.2); Protein, Total 5.1 g/dL (6.4-8.2)
--- NOTE | 2018-06-27 10:08 | NURSING ---
Family request pt be transferred to [facility] due to pt history. Dr. william and making arrangements.
--- NOTE | 2018-06-27 10:42 | NURSING ---
[facility] excepted pt waiting for bed placement.
--- NOTE | 2018-06-27 10:48 | PCM.TXEXTCAR ---
- Diet 06/27/18 06:19 Diet: Nothing Per Oral Diet Comments: NPO except sip water w/ medications - Routine Orders/Code Status Enema Type: Fleetz Enema Frequency: Daily PRN - Allergies/Procedures Done in Hospital Allergies/Adverse Reactions: Allergies Sulfa (Sulfonamide Antibiotics) Allergy (Verified 06/27/18 06:45) Hives - Type of Care/Length of Stay Estimated LOS: Convalescent Care Less Than 30 days Type of Care Needed: Skilled Rehab Potential: Fair Prognosis: Fair - Additional Orders/Day of Discharge Day of Discharge: 06/27/18 - Follow Up Care Primary Care Physician: Masoud Acosta MD [Primary Care Provider] - Please follow up with your Primary Care Physician in: one week
--- NOTE | 2018-06-27 12:55 | PCA ---
Call placed to [facility] transfer center. Spoke with Fransisca who stated there is a high census but the pt is high priority so hopefully it shouldn't be long. Informed primary RN and charge nurse.
--- NOTE | 2018-06-27 14:01 | PCM.DC.SUM ---
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 Further evaluation by CT scan can be helpful. Electronically Signed: Kathleen Keller MD at 5:05 EST Tel , Service support , Chest X-Ray 06/27/18 04:01 IMPRESSION: Degenerative changes, as described above. No demonstrated acute cardiopulmonary process. Electronically Signed: Kathleen Keller MD at 5:01 EST Tel , Service support , Knee X-Ray 06/27/18 04:41 IMPRESSION: Degenerative arthrosis. Electronically Signed: Kathleen Keller MD at 5:44 EST Tel , Service support , Lower Extremity CT 06/27/18 05:43 IMPRESSION: There is an impacted fracture of the left femoral neck. Electronically Signed: Kathleen Keller MD at 7:09 EST Tel , Service support , orthopedic surgery-Dr Bhat Operations: None Procedures: None Summary of Care Provided: The patient is a 62 year old F with an extensive PMH as listed. He was admitted with a complaint of a fall and left hip pain. 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 She was therefore on immunotherapy and follows up at [facility]. She was admitted with a complaint of a mechanical fall after tripping. Pain which progressively worsened despite use of a walker over the last 24 hours prior to admission. In the ED, x-ray done showed marked shortening of the left femoral neck due to impacted left femoral neck fracture. Chest x-ray showed no acute cardiopulmonary process and EKG shows sinus tachycardia with no evidence of ST changes. She was admitted to be managed for left hip fracture due to mechanical fall. Orthopedics was consulted and plan was for patient to have surgery by orthopedics on 06/27/2018. However patient and family requested that she be transferred to [facility] as they had spoken to her hematology oncology team and they advised that patient should be transferred to [facility] where she had gotten all her care previously. Patient was therefore transferred to the orthopedic surgery service at [facility] on 06/27/2018. Patient was seen and examined prior to discharge. is by her bedside. Patient was quite lethargic but said pain was well controlled. Review of systems otherwise negative. Labs and vitals reviewed. Home medications reviewed and reconciled. [] Patient Problems: Active and Suspected Problems Closed left hip fracture (Acute) - Physical Exam General: Alert, Lethargic HEENT: Atraumatic, PERRLA, EOMI, Normocephalic Oral: Moist Mucosa Neck: Supple, No JVD, Negative Carotid Bruits Lungs: Clear to auscultation, Normal air movement, No rhonchi, No wheeze, No rales Cardiovascular: Regular rate, Regular Rhythm, Normal S1, Normal S2, No murmurs Abdomen: Bowel Sounds Present, Soft, Non Tender, Non-Distended, No Hepato-splenomegaly Extremities: No clubbing, No cyanosis, No edema, Capillary Refill Less than 3 Seconds Skin: No rashes, No breakdown Musculoskeletal: - - LLE shortened, externally rotated, mild ecchymosis over left hip region Lymphatic: No Cervical, Supraclavicular, or Inguinal Adenopathy Neurological: Cranial nerves II-XII grossly intact, Neuro grossly intact Psych/Mental Status: Normal Affect, Appropriate, Alert and oriented to time, place, person, mood and affect Vital Signs Temp Pulse Resp BP Pulse Ox 97.8 F 92 16 114/72 94 06/27/18 06:22 06/27/18 06:22 06/27/18 06:22 06/27/18 06:22 06/27/18 06:22 Oxygen Delivery Method Room Air Weight: 150 lb 9.211 oz Body Mass Index (BMI) 22.8 Laboratory Tests Past 24 Hrs 06/27/18 06/27/18 06/27/18 04:50 04:50 04:50 WBC 9.2 RBC 3.74 L Hgb 13.1 Hct 41.3 MCV 110.4 H MCH 35.0 H MCHC 31.7 L RDW 18.9 H RDW Differential 73.4 H Plt Count 98 L MPV 9.3 Immature Gran % (Auto) 1.000 H Neut % (Auto) 71.7 H Lymph % (Auto) 15.8 L [place] % (Auto) 10.9 H Eos % (Auto) 0.4 Baso % (Auto) 0.2 Absolute Neuts (auto) 6.6 Absolute Lymphs (auto) 1.46 Total Counted Not Reportable Differential Comment SCAN Polychromasia 1+ Anisocytosis 1+ Macrocytosis 1+ PT 13.2 INR 1.0 Sodium 143 Potassium 3.7 Chloride 107 Carbon Dioxide 28.0 Anion Gap 8 BUN 7 Creatinine 0.78 Estim Creat Clear Calc 74.47 Est GFR (MDRD) Af Amer 96 Est GFR (MDRD) Non-Af 80 BUN/Creatinine Ratio 9.0 L Glucose 100 Calcium 8.7 Phosphorus Magnesium Total Bilirubin Direct Bilirubin AST ALT Alkaline Phosphatase Total Protein Albumin Globulin 06/27/18 06/27/18 04:50 04:50 WBC RBC Hgb Hct MCV MCH MCHC RDW RDW Differential Plt Count MPV Immature Gran % (Auto) Neut % (Auto) Lymph % (Auto) [place] % (Auto) Eos % (Auto) Baso % (Auto) Absolute Neuts (auto) Absolute Lymphs (auto) Total Counted Differential Comment Polychromasia Anisocytosis Macrocytosis PT INR Sodium Potassium Chloride Carbon Dioxide Anion Gap BUN Creatinine Estim Creat Clear Calc Est GFR (MDRD) Af Amer Est GFR (MDRD) Non-Af BUN/Creatinine Ratio Glucose Calcium Phosphorus 3.7 Magnesium 1.7 Total Bilirubin 1.00 Direct Bilirubin 0.19 AST 15 ALT 23 Alkaline Phosphatase 92 Total Protein 5.1 L Albumin 2.8 L Globulin 2.3 Discharge Diet: Low fat/ Low Cholesterol Home Medications: Medications to take at Discharge Paroxetine HCl 20 mg PO BID 04/24/17 Acyclovir 400 mg PO BID 04/18/18 Olanzapine 5 mg PO QHS 04/18/18 Ondansetron [Zofran] 8 mg PO Q8H PRN PRN 04/18/18 Primary Care Physician: Masoud Acosta MD [Primary Care Provider] - Please follow up with your Primary Care Physician in: one week Disposition: [facility] orthopedic surgery service Minutes spent on discharge:: 45 Patient Condition:: Guarded Medical Necessity - Tobacco Use Smoking Status: Never smoker Tobacco Use: Non-smoker Meaningful Use Info Meaningful Use Diagnoses (Choose all that apply): None applicable Code Visit Inpatient E&M: 57900 Disch Hosp
--- NOTE | 2018-06-27 14:05 | DS.PCM_ITS ---
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 Further evaluation by CT scan can be helpful. Electronically Signed: Kathleen Keller MD at 5:05 EST Tel , Service support , Chest X-Ray 06/27/18 04:01 IMPRESSION: Degenerative changes, as described above. No demonstrated acute cardiopulmonary process. Electronically Signed: Kathleen Keller MD at 5:01 EST Tel , Service support , Knee X-Ray 06/27/18 04:41 IMPRESSION: Degenerative arthrosis. Electronically Signed: Kathleen Keller MD at 5:44 EST Tel , Service support , Lower Extremity CT 06/27/18 05:43 IMPRESSION: There is an impacted fracture of the left femoral neck. Electronically Signed: Kathleen Keller MD at 7:09 EST Tel , Service support , orthopedic surgery-Dr Bhat Operations: None Procedures: None Summary of Care Provided: The patient is a 62 year old F with an extensive PMH as listed. He was admitted with a complaint of a fall and left hip pain. 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 She was therefore on immunotherapy and follows up at [facility]. She was admitted with a complaint of a mechanical fall after tripping. Pain which progressively worsened despite use of a walker over the last 24 hours prior to admission. In the ED, x-ray done showed marked shortening of the left femoral neck due to impacted left femoral neck fracture. Chest x-ray showed no acute cardiopulmonary process and EKG shows sinus tachycardia with no evidence of ST changes. She was admitted to be managed for left hip fracture due to mechanical fall. Orthopedics was consulted and plan was for patient to have surgery by orthopedics on 06/27/2018. However patient and family requested that she be transferred to [facility] as they had spoken to her hematology oncology team and they advised that patient should be transferred to [facility] where she had gotten all her care previously. Patient was therefore transferred to the orthopedic surgery service at [facility] on 06/27/2018. Patient was seen and examined prior to discharge. is by her bedside. Patient was quite lethargic but said pain was well controlled. Review of systems otherwise negative. Labs and vitals reviewed. Home medications reviewed and reconciled. [] Patient Problems: Active and Suspected Problems Closed left hip fracture (Acute) - Physical Exam General: Alert, Lethargic HEENT: Atraumatic, PERRLA, EOMI, Normocephalic Oral: Moist Mucosa Neck: Supple, No JVD, Negative Carotid Bruits Lungs: Clear to auscultation, Normal air movement, No rhonchi, No wheeze, No rales Cardiovascular: Regular rate, Regular Rhythm, Normal S1, Normal S2, No murmurs Abdomen: Bowel Sounds Present, Soft, Non Tender, Non-Distended, No Hepato- splenomegaly Extremities: No clubbing, No cyanosis, No edema, Capillary Refill Less than 3 Seconds Skin: No rashes, No breakdown Musculoskeletal: - - LLE shortened, externally rotated, mild ecchymosis over left hip region Lymphatic: No Cervical, Supraclavicular, or Inguinal Adenopathy Neurological: Cranial nerves II-XII grossly intact, Neuro grossly intact Psych/Mental Status: Normal Affect, Appropriate, Alert and oriented to time, place, person, mood and affect Vital Signs Temp Pulse Resp BP Pulse Ox 97.8 F 92 16 114/72 94 06/27/18 06:22 06/27/18 06:22 06/27/18 06:22 06/27/18 06:22 06/27/18 06:22 Oxygen Delivery Method Room Air Weight: 150 lb 9.211 oz Body Mass Index (BMI) 22.8 Laboratory Tests Past 24 Hrs 06/27/18 06/27/18 06/27/18 04:50 04:50 04:50 WBC 9.2 RBC 3.74 L Hgb 13.1 Hct 41.3 MCV 110.4 H MCH 35.0 H MCHC 31.7 L RDW 18.9 H RDW Differential 73.4 H Plt Count 98 L MPV 9.3 Immature Gran % (Auto) 1.000 H Neut % (Auto) 71.7 H Lymph % (Auto) 15.8 L [place] % (Auto) 10.9 H Eos % (Auto) 0.4 Baso % (Auto) 0.2 Absolute Neuts (auto) 6.6 Absolute Lymphs (auto) 1.46 Total Counted Not Reportable Differential Comment SCAN Polychromasia 1+ Anisocytosis 1+ Macrocytosis 1+ PT 13.2 INR 1.0 Sodium 143 Potassium 3.7 Chloride 107 Carbon Dioxide 28.0 Anion Gap 8 BUN 7 Creatinine 0.78 Estim Creat Clear Calc 74.47 Est GFR (MDRD) Af Amer 96 Est GFR (MDRD) Non-Af 80 BUN/Creatinine Ratio 9.0 L Glucose 100 Calcium 8.7 Phosphorus Magnesium Total Bilirubin Direct Bilirubin AST ALT Alkaline Phosphatase Total Protein Albumin Globulin 06/27/18 06/27/18 04:50 04:50 WBC RBC Hgb Hct MCV MCH MCHC RDW RDW Differential Plt Count MPV Immature Gran % (Auto) Neut % (Auto) Lymph % (Auto) [place] % (Auto) Eos % (Auto) Baso % (Auto) Absolute Neuts (auto) Absolute Lymphs (auto) Total Counted Differential Comment Polychromasia Anisocytosis Macrocytosis PT INR Sodium Potassium Chloride Carbon Dioxide Anion Gap BUN Creatinine Estim Creat Clear Calc Est GFR (MDRD) Af Amer Est GFR (MDRD) Non-Af BUN/Creatinine Ratio Glucose Calcium Phosphorus 3.7 Magnesium 1.7 Total Bilirubin 1.00 Direct Bilirubin 0.19 AST 15 ALT 23 Alkaline Phosphatase 92 Total Protein 5.1 L Albumin 2.8 L Globulin 2.3 Discharge Diet: Low fat/ Low Cholesterol Home Medications: Medications to take at Discharge Paroxetine HCl 20 mg PO BID 04/24/17 Acyclovir 400 mg PO BID 04/18/18 Olanzapine 5 mg PO QHS 04/18/18 Ondansetron [Zofran] 8 mg PO Q8H PRN PRN 04/18/18 Primary Care Physician: Masoud Acosta MD [Primary Care Provider] - Please follow up with your Primary Care Physician in: one week Disposition: [facility] orthopedic surgery service Minutes spent on discharge:: 45 Patient Condition:: Guarded Medical Necessity - Tobacco Use Smoking Status: Never smoker Tobacco Use: Non-smoker Meaningful Use Info Meaningful Use Diagnoses (Choose all that apply): None applicable Code Visit Inpatient E&M: 17828 Disch Hosp
[2018-06-27 14:18] VITALS: BP 135/75; PULSE 100; RESP 18; TEMP 37.1; O2SAT 94
--- NOTE | 2018-06-27 14:38 | PCA ---
Received call from Natalia at [facility] transfer center with bed assignment. Pt will be admitted to the orthopedics floor H71 bed 32, accepted by Dr. Escamilla. Nurse to nurse phone number is [phone]. Informed primary RN, Radha. Set up transport with [facility], [facility] has a squad returning from [place] who will transport patient.
--- NOTE | 2018-06-27 15:22 | NURSING ---
report called to [facility].
[2018-06-27] MEDS: Morphine 4 MG/ML Syringe IV (17:47)
== END 2018-06-27 18:00 | disposition short-term general hospital (02) | DRG 536 ==
LOC: ED 04:28 → MS2 05:31
PROVIDERS: Anesthesiology; Admitting Provider Family Medicine; Emergency Provider Emergency Medicine; Family Provider Family Medicine; PCP Family Medicine; Visit Provider Student in an Organized Health Care Education/Training Program
DX: S72.012A Unspecified intracapsular fracture of left femur, initial encounter for closed fracture (principal); Z94.81 Bone marrow transplant status; D89.813 Graft-versus-host disease, unspecified; D46.9 Myelodysplastic syndrome, unspecified; Z79.899 Other long term (current) drug therapy; W01.0XXA Fall on same level from slipping, tripping and stumbling without subsequent striking against object, initial encounter; Y92.002 Bathroom of unspecified non-institutional (private) residence as the place of occurrence of the external cause; D69.6 Thrombocytopenia, unspecified; F41.9 Anxiety disorder, unspecified; F32.9 Major depressive disorder, single episode, unspecified; Z66 Do not resuscitate
CPT/HCPCS: 71045; 73502; 73560; 73700; 80048; 80076; 83735; 84100; 85025; 85610; 93005; 99284; J7030; A4216; J2405

== ENCOUNTER 2019-03-25 22:35 | Observation (INO) | payer OTHER, SELFPAY ==
[2019-03-25 22:36] VITALS: BP 130/76; PULSE 82; RESP 19; TEMP 36.8; O2SAT 100; BMI 26.0
[2019-03-25 22:39] VITALS: PULSE 85; RESP 14; O2SAT 100
[2019-03-25 22:43] VITALS: O2SAT 100
--- NOTE | 2019-03-25 22:57 | RAD_ITS ---
STUDY: X-RAY CHEST REASON FOR EXAM: Female, 63 years old. Fall and weak TECHNIQUE: Single frontal view of the chest. COMPARISON: None. FINDINGS: The lungs are clear and expanded. There is no demonstrated pleural abnormality. Normal size heart. Normal mediastinum and monica. Normal visualized pulmonary arteries. Normal visualized aortic arch and descending thoracic aorta. Normal visualized thoracic spine. Normal visualized ribs, clavicles, and shoulders. Abdominal sutures. RAD/Chest 1 View (Portable) IMPRESSION: No acute pulmonary findings. Electronically Signed: Enirco Matt MD at 23:13 EST Tel , Service support ,
--- NOTE | 2019-03-25 22:57 | CT_ITS ---
STUDY: CT ABDOMEN AND PELVIS WITHOUT CONTRAST REASON FOR EXAM: Female, 63 years old. Fall, pain RADIATION DOSAGE (If Supplied By Facility): CTDIvol = ( 12.77 ) mGy, DLP = ( 601.46 ) mGycm TECHNIQUE: Transaxial images were obtained from the dome of the diaphragm to the symphysis pubis without oral contrast, and without intravenous contrast. Sagittal and coronal images were reconstructed. Individualized dose optimization techniques were used for this CT. COMPARISON: None. FINDINGS: The visualized lung bases are unremarkable. The visualized portions of the heart are within normal limits. Normal liver. Distended gallbladder containing multiple stones. Normal spleen. Normal pancreas. Normal bilateral adrenal glands. Normal right kidney. Normal left kidney. Normal visualized stomach. Normal small intestine. Normal colon. The appendix is visualized and appears normal. Normal abdominal aorta. There is an IVC filter in place. Normal retroperitoneum. Normal urinary bladder. Postoperative changes of the anterior abdominal wall. Bilateral inguinal hernia repairs. Acute compression fractures of the superior endplates of L2, L3, and L4 with mild loss of height at each level, and without significant retropulsion. Left hip arthroplasty. CT/Abdomen/Pelvis without Cont IMPRESSION: Mild acute compression fractures of the superior endplates of L2, L3, L4, without significant retropulsion. Distended gallbladder containing multiple stones. Note: MRI is more sensitive than CT in detecting cord injury, ligament injury, and epidural hematoma. If there is clinical concern for any of these entities, MRI correlation should be considered if possible. Electronically Signed: Enrico Matt MD at 23:49 EST Tel , Service support ,
--- NOTE | 2019-03-25 22:57 | CT_ITS ---
STUDY: CT BRAIN WITHOUT CONTRAST REASON FOR EXAM: Female, 63 years old. Fall and weakness RADIATION DOSAGE (If Supplied By Facility): CTDIvol = ( 44.99 ) mGy, DLP = ( 782.05 ) mGycm TECHNIQUE: Transaxial CT imaging of the brain was performed without administration of intravenous contrast material. Individualized dose optimization techniques were used for this CT. COMPARISON: No relevant priors. FINDINGS: Normal soft tissue structures. Normal calvarium. Right lens replacement. Normal size ventricles and extra-axial spaces for the patient's age. There are areas of decreased attenuation within the white matter tracts of the supratentorial brain, consistent with microvascular disease changes. Age-related changes of the basal ganglia. Normal brainstem. Normal cerebellum. There is no intracranial hemorrhage. There are no findings of an acute ischemic infarction. Normal visualized paranasal sinuses. CT/Brain/Head without Contrast IMPRESSION: No fracture or intracranial hemorrhage. Electronically Signed: Enrico Matt MD at 23:42 EST Tel , Service support ,
--- NOTE | 2019-03-25 22:59 | CT_ITS ---
STUDY: CT CERVICAL SPINE WITHOUT CONTRAST REASON FOR EXAM: Female, 63 years old. Fall, pain RADIATION DOSAGE (If Supplied By Facility): CTDIvol = ( 17.96 ) mGy, DLP = ( 290.36 ) mGycm TECHNIQUE: High resolution transaxial imaging was performed without contrast material. Sagittal and coronal images were reconstructed. Individualized dose optimization techniques were used for this CT. COMPARISON: None FINDINGS: Craniocervical junction is intact. Degenerative changes are present involving the atlantodental articulation. Normal odontoid process. Alignment is within normal limits. Multilevel degenerative disease is present. No acute fractures or dislocations are seen. Carotid calcifications. CT/Spine Cervical without Contras IMPRESSION: No acute osseous injury is evident. Comment: MRI is more sensitive than CT in detecting cord injury, ligament injury, and epidural hematoma. If there is continued clinical concern for any of these entities, MRI correlation should be considered if possible. Electronically Signed: Enrico Matt MD at 23:44 EST Tel , Service support ,
[2019-03-25 23:06] LABS: Absolute Lymphocyte Count 0.94 X10^3/uL (0.83-4.51); Absolute Neutrophil Count 5.8 X10^3/uL (2.0-7.7); Basophil# 0.03 X10^3/uL; Basophil% 0.4 % (0-1); Eosinophil# 0.26 X10^3/uL; Eosinophils% 3.4 % (0-5); Hematocrit 40.6 % (37-47); Lymphocyte # 0.94 X10^3/ul (4.0); Lymphocyte % 12.4 % (19-41); Mean Corpuscular Hgb 33.6 pg (27.0-32.0); Mean Corpuscular Volume 104.9 fL (81-99); Mean Platelet Vol. 9.9 fl (6.2-12.0); Monocyte# 0.52 X10^3/uL; Monocyte% 6.9 % (0-10); NRBC Flagged by Analyzer 0 % (0-5); Neutrophil % 76.5 % (47-70); Platelet Count 168 K/mm3 (150-450); RBC Distribution Width CV 14.6 % (11.6-14.6); Red Blood Count 3.87 M/mm3 (4.2-5.4); White Blood Count 7.6 K/mm3 (4.4-11.0)
[2019-03-25 23:11] LABS: International Normalized Ratio 2.5
[2019-03-25 23:14] LABS: Anion Gap 6 (5-15); BUN 13 mg/dL (7-18); BUN/Creat Ratio 18.5 RATIO (10-20); Calcium,Total 9.2 mg/dL (8.5-10.1); Chloride 106 mmol/L (98-107); EST Glomerular Filtration Rate 89 mL/min (>60); Est Glom Filt Rate - Afr Amer 108 mL/min (>60); Glucose 108 mg/dL (74-106); Potassium 3.6 mmol/L (3.5-5.1); Sodium Level 140 mmol/L (136-145)
[2019-03-25] MEDS: 0.9% Normal Saline 1,000 ML 150 ML IV (23:35)
[2019-03-25 23:53] LABS: Bacteria 0 SEEN /hpf (None Seen); Mucous, Urine 0 SEEN /hpf (<or=2+); Squamous Epithelial Cells - UA 0 SEEN /hpf (5-10); White Blood Cells 0 SEEN /hpf (0-5)
--- NOTE | 2019-03-25 23:59 | ED.VISSUMM ---
- ER Visit Summary Date of Service: 03/25/19 Chief Complaint: [Fall with head injury and back injury] History of Present Illness: The patient is a 63 F [resents to the emergency department after sustaining a fall earlier this morning. Patient states that she just lost her balance and fell striking her head on some cabinets and then landing on her buttocks and now complaining of low back pain. Patient denies any pain radiating down her legs. She has been ambulatory since the fall however she is gotten progressively more painful. Patient denies any chest pain or shortness of breath. She denies urinary symptoms. Patient does complain of some pain in her neck as well. She denies any numbness or tingling in extremities. She denies weakness to the extremities. Per nursing staff patient had a hard time bearing weight and needed significant assistance to get her into the cot.] Physical Examination: [HEENT-PERRLA, EOMI. Cranial nerves II through XII grossly intact. TMs clear. Mucous membranes moist. No adenopathy. No external evidence of trauma to the patient's head. Patient does have some diffuse C-spine tenderness on palpation. No bony step-offs noted. Cardiovascular-regular rate and rhythm without murmur or ectopy Lungs-clear to auscultation, chest wall stable without crepitus or subcu emphysema Abdomen-normoactive bowel sounds, soft, nontender, no rebound or rigidity, no peritoneal signs. Back exam-patient does have some diffuse tenderness palpation over the lumbar spine. No ecchymosis or bruising noted. Extremities-intact ?4, normal range of motion, normal pulses, atraumatic. Patient has no tenderness over the hips. No shortening or external rotation noted.] Test Results: [CBC with differential obtained was normal. Chemistries normal. INR was 2.5. CT scan of the brain without contrast showed nothing acute. CT scan of the C-spine showed no fractures. CT scan of the abdomen pelvis showed acute fractures of L2-L3 and L4 compression type. Chest x-ray unremarkable.] Emergency Department Course and Treatment: [He was medicated with morphine and Zofran.] Treatment Plan: [Admit for pain control] Disposition: [Admit] Impression: [Mechanical fall Compression fractures at L2, L3, and L4. Post head injury Coumadin coagulopathy] This note was generated with Dragon dictation software. It may contain incorrect words, spelling, and punctuation that were not noted in review of the chart prior to signing ED Disposition - Plan for ED Patient: Referrals: Masoud Acosta MD [Primary Care Provider] -
[2019-03-26] MEDS: Ondansetron 4 MG/2 ML Vial IV (00:01)
[2019-03-26] MEDS: Morphine 4 MG/ML Syringe IV (00:01)
[2019-03-26 00:12] VITALS: BP 140/81; PULSE 79; RESP 17; O2SAT 96
[2019-03-26 00:21] LABS: Color, Urine Yellow (Yellow); Glucose, Dipstick Normal (Normal); Ketone-Dipstick 5 mg/dl (Negative); Leukocyte Esterase-Dipstick Negative /ul (Negative); Nitrite-Dipstick Negative (Negative); Occult Blood-Urine 10 /ul (Negative); Protein-Dipstick Negative (Negative); Urine Bilirubin Dipstick Negative (Negative); Urine Clarity Clear (Clear); Urine Urobilinogen Normal (Normal)
--- NOTE | 2019-03-26 00:24 | HP.PCM_ITS ---
Problem List (1) Vertebral compression fracture Status: Acute Qualifiers: Encounter type: initial encounter Fracture of vertebra location: lumbar Lumbar vertebra fracture level: L4 Qualified Code(s): S32.040A - Wedge comp ression fracture of fourth lumbar vertebra, initial encounter for closed fracture History of Present Illness Date of Admission: 03/26/19 Chief Complaint: fall and back pain. The patient is a 63 year old F who was in her normal state of health but today had fallen. Patient was getting up and was using her walker was feeling dizzy and then fell. Patient did not lose consciousness but fell landing on her buttocks that the flat of her back and then hitting her head. She denies any loss of consciousness. Patient was having back pain and presented to the emergency room. She underwent a trauma work-up that was remarkable only for CT of lumbar spine showed mild acute compression fractures of L2, L3 and L4. The hospital service was contacted from the emergency room for evaluation. Prior to coming in, the had contacted her transplant doctor and spoke with someone else soil conservation aide and advised him to come to the emergency room. They both state that they wish to remain here rather than being transferred to a tertiary facility. 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 Psychiatric History: Anxiety, Depression SYSTEM TECHNOLOGIST History: No pertinent SYSTEM TECHNOLOGIST history Smoking Status: Never smoker - *Family History Maternal History Items: - - Patient denies any marked maternal family history including heart disease, diabetes or cancer. Paternal History Items: - - Patient notes a paternal family history of cancer, young, unclear cancer type. Review of Systems Constitutional: Denies: Anorexia, Chills, Fever Eyes: Denies: Blurred vision, Double vision HEENT: Denies: Head Aches, Sinus Congestion, Sinus Drainage Cardiovascular: Denies: Chest Pain, Edema Respiratory: Denies: Cough, Shortness of Breath Gastrointestinal: Denies: Abdominal Pain, Nausea, Vomiting Genitourinary: Denies: Dysuria, Frequency Musculoskeletal: Reports: Back Pain. Denies: Arm Pain, Foot Pain Skin: Denies: Rash, Wounds Neurological: Denies: Balance problems, Blurred vision, Double vision, Focal weakness Psychiatric: Reports: Depression Endocrine: Denies: Change in Body Habitus, Heat/ Cold Intolerance Hematologic/ Lymphatic: Reports: Hx of blood clot. Denies: Easy Bruising, Easy Bleeding Comment: All review systems are otherwise negative except for as mentioned above and in the HPI. VTE Information - Inpt Only VTE Present on Admission: No VTE Mechan Device Prophylaxis: None VTE Pharm Prophylaxis ordered?: No Reason prophylaxis not ordered:: Procedure Not Indicated Patient Problems: Active and Suspected Problems Vertebral compression fracture (Acute) - Physical Exam Vitals/I&O's: Vital Signs Temp Pulse Resp BP Pulse Ox 36.8 C 79 17 140/81 H 96 03/25/19 22:36 03/26/19 00:12 03/26/19 00:12 03/26/19 00:12 03/26/19 00:12 Oxygen Delivery Method Room Air Weight: 77.8 kg Body Mass Index (BMI) 26.0 General: Alert, Cooperative, No apparent distress HEENT: Atraumatic, Normocephalic Oral: Moist Mucosa, No Gingival or Mucosal Lesions/ Ulcerations Neck: No Nodes, Thyroid Normal Size and Texture Lungs: Clear to auscultation, Normal air movement, No rhonchi, No wheeze, No rales Cardiovascular: Regular rate, Regular Rhythm, Normal S1, Normal S2, No murmurs Abdomen: Bowel Sounds Present, Soft, Non Tender, Non-Distended, No Hepato- splenomegaly Extremities: No edema, No Calf Tenderness Skin: No rashes, No breakdown Musculoskeletal: No Tenderness to Palpation of Joints or Extremities, No Muscle Wasting Neurological: Motor Exam 5/5 strength throughout, Sensory exam intact to light touch and pain, - - No clonus Psych/Mental Status: Appropriate, Flat Affect Laboratory Results 03/25/19 22:42: WBC 7.6, RBC 3.87 L, Hgb 13.0, Hct 40.6, MCV 104.9 H, MCH 33.6 H , MCHC 32.0, RDW Std Deviation 57.0 H, RDW Coeff of Gabriela 14.6, Plt Count 168, MPV 9.9, Immature Gran % (Auto) 0.400, Neut % (Auto) 76.5 H, Lymph % (Auto) 12.4 L, [place] % (Auto) 6.9, Eos % (Auto) 3.4, Baso % (Auto) 0.4, Absolute Neuts (auto) 5.8, Absolute Lymphs (auto) 0.94, Nucleated RBC % 0 03/25/19 22:42: PT 27.0 H, INR 2.5 03/25/19 22:42: Sodium 140, Potassium 3.6, Chloride 106, Carbon Dioxide 28.0, Anion Gap 6, BUN 13, Creatinine 0.70, Estim Creat Clear Calc 81.90, Est GFR (MDRD) Af Amer 108, Est GFR (MDRD) Non-Af 89, BUN/Creatinine Ratio 18.5, Glucose 108 H, Calcium 9.2 03/25/19 23:47: Urine Color Yellow, Urine Clarity Clear, Urine pH 7.0, Ur Specific [place] 1.010, Urine Protein Negative, Urine Glucose (UA) Normal, Urine Ketones 5 H, Urine Occult Blood 10 H, Urine Nitrite Negative, Urine Bilirubin Negative, Urine Urobilinogen Normal, Ur Leukocyte Esterase Negative, Urine RBC Pending, Urine WBC Pending, Ur Squamous Epith Cells Pending, Urine Bacteria Pending, Urine Mucus Pending Clinical Impression(s) from Imaging Studies Abdomen/Pelvis CT 03/25/19 22:57 IMPRESSION: Mild acute compression fractures of the superior endplates of L2, L3, L4, without significant retropulsion. Distended gallbladder containing multiple stones. Note: MRI is more sensitive than CT in detecting cord injury, ligament injury, and epidural hematoma. If there is clinical concern for any of these entities, MRI correlation should be considered if possible. Electronically Signed: Enrico Matt MD at 23:49 EST Tel , Service support , Brain CT 03/25/19 22:57 IMPRESSION: No fracture or intracranial hemorrhage. Electronically Signed: Enrico Matt MD at 23:42 EST Tel , Service support , Chest X-Ray 03/25/19 22:57 IMPRESSION: No acute pulmonary findings. Electronically Signed: Enrico Matt MD at 23:13 EST Tel , Service support , Cervical Spine CT 03/25/19 22:59 IMPRESSION: No acute osseous injury is evident. Comment: MRI is more sensitive than CT in detecting cord injury, ligament injury, and epidural hematoma. If there is continued clinical concern for any of these entities, MRI correlation should be considered if possible. Electronically Signed: Enrico Matt MD at 23:44 EST Tel , Service support , Current Medications Sodium Chloride () 1,000 mls @ 150 mls/hr IV .[id number] [facility] Last Admin: 03/25/19 23:35 Dose: 150 mls/hr Documented by: Assessment/Plan All Active Problems Epistaxis (Acute) Closed left hip fracture (Acute) Vertebral compression fracture (Acute) 1. Acute vertebral compression fractures * No notable loss of height based on the CAT scan * Plan is to work on pain control with oral medication. If refractory, consider pain management for epidural evaluation. * Given that this fall occurred from a standing height, and does not have other injuries, no indication to transfer to tertiary facility though it was offered to the patient and and they declined. * Check a 25-hydroxy vitamin D level and replace if low. Goal level being 50. 2. Debility * Secondary to above but also patient's performance status was not great to begin with as she was using a walker though had not fallen within the past year or 2 * Physical and occupational therapy 3. History of VTE: * On warfarin and INR is 2.5. * Would continue with warfarin for now. * Patient did hit her head but it was only after hitting her buttocks and her back and then her head given the mechanism of her fall. * Would not order any additional imaging of her head at this time unless she demonstrates new neurologic findings 4. Myelodysplastic syndrome * Status post bone marrow transplant * Her CBC appears to be good at this time * Follow-up with her sprinkler irrigation equipment mechanic as outpatient 5. VTE prophylaxis: Low risk as patient is already on warfarin and is therapeutic 6. Advanced care planning: Discussed with the patient and her . She wishes to be full CODE STATUS at this time. Code Visit OBSV E&M: 59196 Initial observation care L3
[2019-03-26 00:27] LABS: Red Blood Cells-Urine 0-5 SEEN /hpf (0-5)
[2019-03-26 00:43] VITALS: BMI 23.1
[2019-03-26 00:44] VITALS: BP 119/70; PULSE 77; RESP 18; TEMP 37.1; O2SAT 95
[2019-03-26 00:58] VITALS: BMI 23.2
[2019-03-26 06:15] VITALS: BP 128/69; PULSE 79; RESP 16; TEMP 36.9; O2SAT 93
[2019-03-26 06:39] LABS: International Normalized Ratio 2.6; Prothrombin Time (Protime)PT. 27.9 SECONDS (11.7-14.9)
[2019-03-26 08:25] LABS: Vitamin D,25 Hydroxy 46.5 ng/mL (29.95-100.01)
[2019-03-26 08:50] VITALS: PULSE 84
[2019-03-26] MEDS: buPROPion (SR) 150 MG Tablet.SA PO (09:40)
[2019-03-26] MEDS: Acyclovir 200 MG Capsule 400 MG PO (09:40)
[2019-03-26] MEDS: Paroxetine 20 MG Tablet PO (09:40)
[2019-03-26] MEDS: Acetaminophen 500 MG Tablet 1000 MG PO ×2 (09:41→13:43)
--- NOTE | 2019-03-26 10:03 | DCINST_ITS ---
- Discharge Diagnoses Current Active Problems: Current Active and Chronic Problems (Last Updated 03/26/19 @ 00:27 by Adama Gallo DO) Vertebral compression fracture (Acute) Reason(s) for Visit for Discharge Instructions: Back pain You will use the following diet at home:: Regular Your food should be the consistency of: Regular Your liquids should be the consistency of: Regular/Thin Discharge Activity: Return to Normal Activity Additional Instructions: Continue to use Tylenol as needed for pain. You can also apply topical agents like Biofreeze for pain relief. Follow-up with your primary care doctor within 1-2 weeks. You may be referred to pain management by your primary care doctor if your pain is not controlled. Follow-up with your other specialists as scheduled. Allergies/Adverse Reactions: Allergies Sulfa (Sulfonamide Antibiotics) Allergy (Verified 06/27/18 06:45) Hives Medications to take at Discharge Paroxetine HCl 20 mg PO BID 04/24/17 Acyclovir 400 mg PO BID 04/18/18 Olanzapine 5 mg PO QHS 04/18/18 ALPRAZolam [Xanax] 0.5 mg PO TID PRN PRN 03/25/19 Warfarin [Coumadin] 1 mg PO DAILY 03/25/19 buPROPion SR [Wellbutrin SR (150mg tablets)] 150 mg PO BID 03/25/19 Acetaminophen [Tylenol] 1,000 mg PO Q8 PRN tab 03/26/19 Primary Care Physician: Masoud Acosta MD [Primary Care Provider] - Please follow up with your Primary Care Physician in: within 1-2 weeks Test Results: Test results from this visit will be discussed in further detail at your follow- up appointment, if applicable. Proposed Discharge Date: 03/26/19
--- NOTE | 2019-03-26 10:07 | PCM.DC.SUM ---
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 Distended gallbladder containing multiple stones. Note: MRI is more sensitive than CT in detecting cord injury, ligament injury, and epidural hematoma. If there is clinical concern for any of these entities, MRI correlation should be considered if possible. Electronically Signed: Enrico Matt MD at 23:49 EST Tel , Service support , Brain CT 03/25/19 22:57 IMPRESSION: No fracture or intracranial hemorrhage. Electronically Signed: Enrico Matt MD at 23:42 EST Tel , Service support , Chest X-Ray 03/25/19 22:57 IMPRESSION: No acute pulmonary findings. Electronically Signed: Enrico Matt MD at 23:13 EST Tel , Service support , Cervical Spine CT 03/25/19 22:59 IMPRESSION: No acute osseous injury is evident. Comment: MRI is more sensitive than CT in detecting cord injury, ligament injury, and epidural hematoma. If there is continued clinical concern for any of these entities, MRI correlation should be considered if possible. Electronically Signed: Enrico Matt MD at 23:44 EST Tel , Service support , None Operations: None Procedures: None Summary of Care Provided: The patient is a 63 year old F past medical history of MDS status post bone marrow transplant, history of osteoporosis who was admitted in the early hours of today after a fall. Patient was getting up and using her walker when she felt dizzy and fell. She did not lose consciousness but landed on her buttocks hitting her head. In the emergency room, work-up including brain CT, chest x-ray, spinal spine CT with negative for acute fractures. Abdomen and pelvis CT showed acute vertebral fractures of L2, L3, L4. She was admitted to the [facility] floor for pain control. She continued to be stable and required no much medications for pain control. Recommended tylenol prn. She was seen by PT and OT and skilled for home with home health. Subjective: Patient was seen and examined. Her at the bedside. She says her pain is controlled. She ambulates at home with walker. She is looking forard to going home and is agreeable to home health Objective: Physical exam: General: Alert, Cooperative, No apparent distress HEENT: Atraumatic, Normocephalic Oral: Moist Mucosa, No Gingival or Mucosal Lesions/ Ulcerations Neck: No Nodes, Thyroid Normal Size and Texture Lungs: Clear to auscultation, Normal air movement, No rhonchi, No wheeze, No rales Cardiovascular: Regular rate, Regular Rhythm, Normal S1, Normal S2, No murmurs Abdomen: Bowel Sounds Present, Soft, Non Tender, Non-Distended, No Hepato-splenomegaly Extremities: No edema, No Calf Tenderness Skin: No rashes, No breakdown Musculoskeletal: No Tenderness to Palpation of Joints or Extremities, No Muscle Wasting Neurological: Motor Exam 5/5 strength throughout, Sensory exam intact to light touch and pain, - - No clonus Psych/Mental Status: Appropriate, Flat Affect - Physical Exam Vitals/I&O's: Vital Signs Temp Pulse Resp BP Pulse Ox 98.5 F 84 16 128/69 H 93 03/26/19 06:15 03/26/19 08:50 03/26/19 06:15 03/26/19 06:15 03/26/19 06:15 Oxygen Delivery Method Room Air Weight: 69.1 kg Body Mass Index (BMI) 23.1 Intake and Output for Last 24 Hours 03/24/19 03/25/19 03/26/19 23:59 23:59 23:59 Intake Total 315 / 315 Balance 315 / 315 Laboratory Results 03/25/19 22:42: WBC 7.6, RBC 3.87 L, Hgb 13.0, Hct 40.6, MCV 104.9 H, MCH 33.6 H, MCHC 32.0, RDW Std Deviation 57.0 H, RDW Coeff of Gabriela 14.6, Plt Count 168, MPV 9.9, Immature Gran % (Auto) 0.400, Neut % (Auto) 76.5 H, Lymph % (Auto) 12.4 L, [place] % (Auto) 6.9, Eos % (Auto) 3.4, Baso % (Auto) 0.4, Absolute Neuts (auto) 5.8, Absolute Lymphs (auto) 0.94, Nucleated RBC % 0 03/25/19 22:42: PT 27.0 H, INR 2.5 03/25/19 22:42: Sodium 140, Potassium 3.6, Chloride 106, Carbon Dioxide 28.0, Anion Gap 6, BUN 13, Creatinine 0.70, Estim Creat Clear Calc 81.90, Est GFR (MDRD) Af Amer 108, Est GFR (MDRD) Non-Af 89, BUN/Creatinine Ratio 18.5, Glucose 108 H, Calcium 9.2 03/25/19 23:47: Urine Color Yellow, Urine Clarity Clear, Urine pH 7.0, Ur Specific [place] 1.010, Urine Protein Negative, Urine Glucose (UA) Normal, Urine Ketones 5 H, Urine Occult Blood 10 H, Urine Nitrite Negative, Urine Bilirubin Negative, Urine Urobilinogen Normal, Ur Leukocyte Esterase Negative, Urine RBC 0-5 SEEN, Urine WBC 0 SEEN, Ur Squamous Epith Cells 0 SEEN, Urine Bacteria 0 SEEN, Urine Mucus 0 SEEN 03/26/19 05:54: PT 27.9 H, INR 2.6 03/26/19 05:54: Vitamin D 25-Hydroxy 46.5 Current Medications Acetaminophen (Tylenol) 1,000 mg PO Q8 [facility] Last Admin: 03/26/19 09:41 Dose: 1,000 mg Documented by: Acyclovir (Zovirax) 400 mg PO BID [facility] Last Admin: 03/26/19 09:40 Dose: 400 mg Documented by: Alprazolam (Xanax) 0.5 mg PO TID PRN PRN PRN Reason: ANXIETY Bupropion HCl (Wellbutrin Sr (150mg Tablets)) 150 mg PO BID [facility] Last Admin: 03/26/19 09:40 Dose: 150 mg Documented by: Dextrose (D50w Syringe) 0 gm IV X1 PRN; Protocol PRN Reason: Hypoglycemia Glucagon () 1 mg IM .X1 PRN PRN Reason: Hypoglycemia Melatonin (Melatonin) 3 mg PO QHS PRN PRN PRN Reason: INSOMNIA Olanzapine (Zyprexa Zydis) 5 mg PO QHS SENG Ondansetron HCl (Zofran) 4 mg IV Q8H PRN PRN PRN Reason: NAUSEA/VOMITING Oxycodone HCl (Oxyir) 5 mg PO Q4H PRN PRN PRN Reason: Pain Score 4-5/10 Oxycodone HCl (Oxyir) 10 mg PO Q4H PRN PRN PRN Reason: Pain Score 6-10/10 Paroxetine HCl (Paxil) 20 mg PO BID [facility] Last Admin: 03/26/19 09:40 Dose: 20 mg Documented by: Senna/Docusate Sodium (Senokot-S, Ana María-Colace) 2 tablet PO BID PRN PRN PRN Reason: Constipation Sodium Chloride () 10 - 40 ml IV UD PRN PRN Reason: SALINE FLUSH Warfarin Sodium (Coumadin (Pbkc)) 1 mg PO DAILY@1700 [facility] Discharge Diet: No Restrictions Discharge Activity: Return to Normal Activity Home Medications: Medications to take at Discharge Paroxetine HCl 20 mg PO BID 04/24/17 Acyclovir 400 mg PO BID 04/18/18 Olanzapine 5 mg PO QHS 04/18/18 ALPRAZolam [Xanax] 0.5 mg PO TID PRN PRN 03/25/19 Warfarin [Coumadin] 1 mg PO DAILY 03/25/19 buPROPion SR [Wellbutrin SR (150mg tablets)] 150 mg PO BID 03/25/19 Acetaminophen [Tylenol] 1,000 mg PO Q8 PRN tab 03/26/19 Primary Care Physician: Masoud Acosta MD [Primary Care Provider] - Please follow up with your Primary Care Physician in: within 1-2 weeks Disposition: Home with Home Health Minutes spent on discharge:: 40 Patient Condition:: Stable Medical Necessity - Tobacco Use Smoking Status: Never smoker Tobacco Use: Non-smoker Meaningful Use Info Meaningful Use Diagnoses (Choose all that apply): None applicable Code Visit OBSV E&M: 16642 Observation care discharge
--- NOTE | 2019-03-26 12:00 | CASEMGMT ---
MILLY HERRERA Face to Face with patient for initial transition planning/care coordination assessment. MILLY HERRERA introduced self and role at [facility]. Patient sitting in chair, alert and oriented, at bedside. Patient willing to participate in assessment and is able to answer all questions appropriately. Care providers, pharmacy, and demographics verified. Patient wishes to discharge home and would like [facility] for therapy. MILLY HERRERA provided home therapy pricing for patient and and would like [facility]. Patient states she has no further needs or concerns at this time. CM to follow for discharge planning needs that may arise. PCP: Dave Specialists: none Preferred Pharmacy: [facility] in [place] Insurance: none Prescription Benefit: none Living Will/HPOA: none LNOK: Living Arrangements: Patient lives with in single story home with ramp to enter the home. assist with bathing. Transportation: [employer] [facility] DME/HHC: Patient has shower chair, raised toilet with handles, cane, walker, and wheelchair. Patient prefers [facility], referral sent and they are able to accept the patient. Disposition Plan: Patient to discharge home with home therapy, family support, and follow-up plans in place. Nusrat URBANO, RN, CM
[2019-03-26 13:44] VITALS: BP 90/57; PULSE 78; RESP 16; TEMP 36.8; O2SAT 97
== END 2019-03-26 14:30 | disposition home or self-care (01) ==
LOC: ED 23:15 → MS3 03-26 01:07
PROVIDERS: Emergency Provider Emergency Medicine; Family Provider Family Medicine; PCP Family Medicine; Visit Provider Internal Medicine
DX: S32.028A Other fracture of second lumbar vertebra, initial encounter for closed fracture (principal); S32.038A Other fracture of third lumbar vertebra, initial encounter for closed fracture; S32.048A Other fracture of fourth lumbar vertebra, initial encounter for closed fracture; W19.XXXA Unspecified fall, initial encounter; Y93.89 Activity, other specified; Y92.9 Unspecified place or not applicable; M54.2 Cervicalgia; S09.90XA Unspecified injury of head, initial encounter; T45.515A Adverse effect of anticoagulants, initial encounter; R79.1 Abnormal coagulation profile; R42 Dizziness and giddiness; D46.9 Myelodysplastic syndrome, unspecified; D69.6 Thrombocytopenia, unspecified; F41.9 Anxiety disorder, unspecified; F32.9 Major depressive disorder, single episode, unspecified; D89.811 Chronic graft-versus-host disease; Z79.899 Other long term (current) drug therapy; Z79.01 Long term (current) use of anticoagulants; Z86.718 Personal history of other venous thrombosis and embolism; Z94.81 Bone marrow transplant status
CPT/HCPCS: 36415; 70450; 71045; 72125; 74176; 80048; 81001; 82306; 85025; 85610; 96374; 96375; 97162; 97166; 99218; 99285; J7030; A4216; G0378; J2405

== ENCOUNTER → 2019-07-12 09:07 | Outpatient (CLI) | payer OTHER, SELFPAY ==
[2019-07-12 08:53] VITALS: BMI 23.1
--- NOTE | 2019-07-12 09:08 | RAD_ITS ---
EXAM DESCRIPTION: PA and lateral chest CLINICAL HISTORY: 63 years Female, COUGH W/FEVER COUGH W/FEVER COMPARISON: Previous chest obtained on 03/25/2019 FINDINGS: The thorax is intact. The heart and mediastinum appear to be within normal limits. The lungs appear to be well areated without evidence of pneumonic consolidation or pleural effusion. RAD/Chest PA and Lateral IMPRESSION: Normal PA and lateral chest Electronically Signed: Yousif Escobar, at 9:41 EST Tel , Service support ,
== END ==
PROVIDERS: PCP Family Medicine; Referring Provider Physician Assistant Surgical; Visit Provider Physician Assistant Surgical
DX: R05 Cough (principal); R50.9 Fever, unspecified
CPT/HCPCS: 71046

== ENCOUNTER 2021-05-01 19:44 | Emergency (ER) | payer SELFPAY ==
[2021-05-01 19:45] VITALS: BP 191/107; PULSE 101; RESP 16; TEMP 36.4; O2SAT 97; BMI 27.4
--- NOTE | 2021-05-01 20:03 | CT_ITS ---
STUDY: CT BRAIN WITHOUT CONTRAST REASON FOR EXAM: Female, 65 years old. aphasia RADIATION DOSAGE (If Supplied By Facility): CTDIvol = ( 44.99 ) mGy, DLP = ( 812.98 ) mGycm TECHNIQUE: Transaxial CT imaging of the brain was performed without administration of intravenous contrast material. Individualized dose optimization techniques were used for this CT. COMPARISON: 03/25/2019 FINDINGS: Normal soft tissue structures. Normal calvarium. Normal size ventricles and extra-axial spaces for the patient''s age. Normal white matter tracts of the cerebral hemispheres. Normal basal ganglia and thalami. Normal brainstem. Normal cerebellum. There is no intracranial hemorrhage. There are no findings of an acute ischemic infarction. Normal visualized paranasal sinuses. CT/Brain/Head without Contrast IMPRESSION: No acute intracranial hemorrhage or mass effect. Electronically Signed: Ken Melton MD ([place]) at 20:36 EST , Service support ,
--- NOTE | 2021-05-01 20:08 | EX.ED.DYSGE1 ---
HPI History of Present Illness Chief Complaint: Alt LOC Informant: spouse/S.O. Narrative Narrative: 65-year-old Jay female brought to the emergency department speaking. Her tells me that they have a bed waiting for them at the [facility] in the faster we can get them there the better it will be. He states that she has tetee-vdhbzg-yzqp disease and as part of that on stop speaking for 5 minutes at a time. He states that he talk to his doctors office and they said it was probably the prednisone that was doing it and that there was normal. Today she has not smoked for about 2-1/2 hours. So he called the clinic again and they said that she should come to the hospital. History is extremely hard to get from the and obviously the patient does not provide any history so I had to rely on outside sources as I am not to [facility] at this time and do not have rapid access to her chart. Unable to see that she has a history of myelodysplastic syndrome and received a bone marrow transplant. She she had gastric biopsies in the past that showed qlmzu-wixlsz-ecic disease but her most recent work-up did not. She was treated with high-dose arm Medrol few weeks ago for burning in her eyes and has been on prednisone since. She is also on tacrolimus [facility] Medical History Back pain Depression Difficulty balancing Fatigue GVHD (graft versus host disease) MDS (myelodysplastic syndrome) VTE (venous thromboembolism) Home Medications paroxetine HCl 20 mg PO BID 04/24/17 [History Last Taken 03/25/19 20 mg] acyclovir 400 mg PO BID 04/18/18 [History Last Taken 03/25/19] alprazolam 0.5 mg PO TID PRN PRN 03/25/19 [History Last Taken 03/25/19] bupropion HCl 150 mg PO BID 03/25/19 [History Last Taken 03/25/19] acetaminophen 1,000 mg PO Q8 PRN tab 03/26/19 [Rx Last Taken Unknown] amoxicillin 250 mg PO BID 05/01/21 [History Last Taken Unknown] oxycodone 5 mg PO Q4H PRN 05/01/21 [History Last Taken Unknown] pantoprazole 40 mg PO BID 05/01/21 [History Last Taken Unknown] prednisone See Taper PO DAILY 05/01/21 [History Last Taken Unknown] sennosides-docusate sodium [Stool Softener-Stimulant Laxat] 1 tab PO BID 05/01/21 [History Last Taken Unknown] tacrolimus 0.5 mg PO BID 05/01/21 [History Last Taken Unknown] voriconazole 200 mg PO Q12H PRN 05/01/21 [History Last Taken Unknown] Allergy/AdvReac Type Severity Reaction Status Date / Time Sulfa (Sulfonamide Allergy Hives Verified 05/01/21 19:50 Antibiotics) Surgical History Bone marrow transplant status Social History (Updated 05/01/21 @ 20:[address] Lucius Overton DO) current gender identity: female Smoking Status: Never smoker ROS ROS ED Constitutional Constitutional ED: Denies chills or weight loss Eyes Eyes: Reports other Details: Eye pain ; Denies change in vision or diplopia ENT ENT ED: Denies ear pain, rhinorrhea or sore throat Cardiovascular Cardiovascular: Denies chest pain, orthopnea, palpitations or racing heartbeat Respiratory/Chest Respiratory/Chest: Denies cough, dyspnea or orthopnea Gastrointestinal Gastrointestinal: Denies abdominal pain, diarrhea, nausea or vomiting Genitourinary Genitourinary ED: Denies dysuria, hematuria or urinary frequency Musculoskeletal Musculoskeletal: Denies arthralgias or myalgias Integumentary Denies abscess or rash Neurologic Neurologic: Reports other Details: Aphasia ; Denies headache(s) or weakness Psychiatric Psychiatric: Denies anxiety, depression, suicidal ideation or suicidal thoughts Endocrine Endocrinology: Denies polydipsia, polyphagia or polyuria Allergic/Immunologic Allergic/Immunologic ED: Denies mouth swelling, tongue swelling or urticaria EXAM Physical Exam Const Vital Signs: 05/01/21 19:45 05/01/21 20:45 Temperature 97.6 F L Temperature Source Temporal Pulse Rate 101 H 87 Respiratory Rate 16 17 Blood Pressure 191/107 H 182/97 H Blood Pressure Mean 135 125 Pulse Ox 97 97 Oxygen Delivery Method Room Air Room Air Positive well nourished and well developed General Appearance ED: well developed HEENT Reports normocephalic, head/scalp atraumatic and moist mucous membranes Eyes PERRL and EOMs intact bilaterally Neck no lymphadenopathy, supple and no JVD Resp normal respiratory effort and clear to auscultation bilaterally Cardio regular rate, regular rhythm and no murmurs GI normal to inspection, nondistended, normoactive bowel sounds and non-tender Palpation: soft Back/Spine no CVA tenderness and normal ROM Extremity normal to inspection General Extremety ED: Negative for edema General Extremity: Negative for edema Neuro CN's II-XII intact bilaterally Sensorium / Orientation: alert Motor Exam: strength 5/5 throughout Psych Mood & Affect: depressed and tearful Skin no rashes or lesions noted and no wounds MDM MDM MDM Narrative Medical decision making narrative: CBC was normal with a platelet count of 291. CMP showed glucose of 137 creatinine 1.78 which is elevated from her last one but the last one was 2018. Lactic acid is normal 1.[address] of the brain was negative. I do not have access to an MRI tonight. I think this is most likely an etiology other than GVHD such as pres. I do believe that she needs a MRI and further evaluation. Patient has been accepted to [facility] where her business unit controller/oncologist is out. Lab Data Attestation: I reviewed the patient's lab results. Labs: Laboratory Results - last 24 hr 05/01/21 05/01/21 05/01/21 19:50 19:50 20:13 WBC 7.1 RBC 4.26 Hgb 14.4 Hct 44.2 MCV 103.8 H MCH 33.8 H MCHC 32.6 RDW Std Deviation 67.8 H RDW Coeff of Gabriela 17.4 H Plt Count 291 MPV 9.4 Immature Gran % (Auto) 0.400 Neut % (Auto) 71.8 H Lymph % (Auto) 19.2 [place] % (Auto) 8.5 Eos % (Auto) 0.0 Baso % (Auto) 0.1 Absolute Neuts (auto) 5.1 Absolute Lymphs (auto) 1.36 Nucleated RBC % 0 Anisocytosis 1+ Sodium 139 Potassium 4.5 Chloride 105 Carbon Dioxide 26.0 Anion Gap 8 BUN 31 H Creatinine 1.78 H Estim Creat Clear Calc 26.85 Est GFR (MDRD) Af Amer 37 L Est GFR (MDRD) Non-Af 30 L BUN/Creatinine Ratio 17.4 Glucose 137 H Lactic Acid 1.1 Calcium 9.6 Total Bilirubin 0.50 AST 37 ALT 63 H Alkaline Phosphatase 158 H Troponin I High Sens 9 Total Protein 7.5 Albumin 3.4 Globulin 4.1 Albumin/Globulin Ratio 0.8 L Lipase 154 Radiography Diagnostic Testing: Clinical Impression(s) from Imaging Studies Brain CT 05/01/21 20:03 IMPRESSION: No acute intracranial hemorrhage or mass effect. Electronically Signed: Ken Melton MD ([place]) at 20:36 EST , Service support , Discharge Plan Triage Chief Complaint: Alt LOC ED Provider: Lucius Overton Dx/Rx/DC Orders Clinical Impression: Aphasia, MDS (myelodysplastic syndrome), high grade, Cpazl-jkwgvb-pmez disease Prescriptions: No Action paroxetine HCl 20 MG tablet 20 mg PO BID RF: 0 acyclovir 400 MG tablet 400 mg PO BID RF: 0 bupropion HCl 150 MG tablet sustained-release 12 hr 150 mg PO BID RF: 0 alprazolam 0.5 MG tablet 0.5 mg PO TID PRN PRN (Reason: Anxiety) RF: 0 acetaminophen 500 MG tablet 1,000 mg PO Q8 PRN (Reason: Pain Score 6-10/10) RF: 0 prednisone 10 mg tablet See Taper mg PO DAILY RF: 0 pantoprazole 40 mg tablet,delayed release (DR/EC) 40 mg PO BID RF: 0 tacrolimus 0.5 mg capsule 0.5 mg PO BID RF: 0 oxycodone 5 mg Tablet 5 mg PO Q4H PRN (Reason: Pain) RF: 0 sennosides-docusate sodium [Stool Softener-Stimulant Laxat] 8.6-50 mg tablet 1 tab PO BID RF: 0 amoxicillin 250 mg capsule 250 mg PO BID RF: 0 voriconazole 200 mg tablet 200 mg PO Q12H PRN RF: 0 Primary Care Provider: Masoud Acosta Referrals: Masoud Acosta MD [Primary Care Provider] - Disposition Disposition: Acute Care Hospital Discharge Location: [facility]
--- NOTE | 2021-05-01 20:14 | ED.RN ---
PT ANSWERS ALL QUESTIONS WITH NOD OR SHAKE OF HEAD, OCCASIONALLY VERBALIZES [facility]. PT DENIES FEELING ILL IN ANY WAY, DENIES PAIN. PT KEEPS EYES CLOSED DURING ALL INTERACTIONS.
[2021-05-01 20:20] LABS: Absolute Lymphocyte Count 1.36 X10^3/uL (0.83-4.51); Absolute Neutrophil Count 5.1 X10^3/uL (2.0-7.7); Basophil# 0.01 X10^3/uL; Basophil% 0.1 % (0-1); Hematocrit 44.2 % (37-47); Hemoglobin 14.4 g/dL (12.0-15.0); Lymphocyte # 1.36 X10^3/ul (0.83-4.51); Lymphocyte % 19.2 % (19-41); Mean Corp Hgb Conc 32.6 g/dL (32-36); Mean Corpuscular Hgb 33.8 pg (27.0-32.0); Mean Corpuscular Volume 103.8 fL (81-99); Mean Platelet Vol. 9.4 fl (6.2-12.0); Monocyte% 8.5 % (0-10); NRBC Flagged by Analyzer 0 % (0-5); Neutrophil % 71.8 % (47-70); POSITIVE MORPHOLOGY YES; Platelet Count 291 K/mm3 (150-450); RBC Distribution Width CV 17.4 % (11.6-14.6); RBC Distribution Width SD 67.8 fl (35.1-43.9); Red Blood Count 4.26 M/mm3 (4.2-5.4); White Blood Count 7.1 K/mm3 (4.4-11.0)
[2021-05-01 20:30] LABS: Differential Indicated SCAN CRITERIA MET
[2021-05-01 20:39] LABS: ALB/GLOB Ratio 0.8 RATIO (0.9-2.4); AST(SGOT) 37 U/L (15-37); Alanine Aminotransfer ALT/SGPT 63 U/L (13-56); Albumin, Serum 3.4 g/dL (3.2-5.0); Alkaline Phosphatase 158 U/L (45-117); Anion Gap 8 (5-15); BUN 31 mg/dL (7-18); BUN/Creat Ratio 17.4 RATIO (10-20); Calcium,Total 9.6 mg/dL (8.5-10.1); Chloride 105 mmol/L (98-107); Creatinine, Serum 1.78 mg/dL (0.55-1.02); EST Glomerular Filtration Rate 30 mL/min (>60); Est Glom Filt Rate - Afr Amer 37 mL/min (>60); Estimated Creatinine Clearance 26.85 ml/min; Globulin 4.1 g/dL (2.2-4.2); Glucose 137 mg/dL (74-106); Lipase 154 U/L (73-393); Potassium 4.5 mmol/L (3.5-5.1); Protein, Total 7.5 g/dL (6.4-8.2); Sodium Level 139 mmol/L (136-145); Troponin-I HS 9 pg/mL (3.0-54.0)
[2021-05-01 20:41] LABS: Lactic Acid 1.1 mmol/L (0.4-1.9)
[2021-05-01 20:45] VITALS: BP 182/97; PULSE 87; RESP 17; O2SAT 97
[2021-05-01 20:54] LABS: Anisocytosis 1+
--- NOTE | 2021-05-01 21:12 | NURSING ---
NOTIFIED [facility] THAT PT NEEDS TO BE TRANSFERRED; IT WILL BE DAYS BEFORE THERE IS A BED AVAILABLE. SHE TOOK INFORMATION AND I FAXED THE FACESHEET.
[2021-05-01 21:30] VITALS: BP 187/105; PULSE 87; RESP 16; O2SAT 98
[2021-05-01] MEDS: hydrALAZINE 20 MG/ML Vial 10 MG IV (21:31)
[2021-05-01 22:00] VITALS: BP 158/78; PULSE 81; RESP 16; O2SAT 97
[2021-05-01 23:40] VITALS: BP 154/71; PULSE 73; RESP 16; O2SAT 98
== END 2021-05-01 23:42 | disposition short-term general hospital (02) ==
PROVIDERS: Emergency Provider Emergency Medicine; PCP Family Medicine
DX: R47.01 Aphasia (principal); D46.9 Myelodysplastic syndrome, unspecified; D89.813 Graft-versus-host disease, unspecified; F32.A Depression, unspecified; Z79.899 Other long term (current) drug therapy
CPT/HCPCS: 70450; 80053; 83605; 83690; 84484; 85025; 87426; 96374; 99285; A4216